=== PATIENT | male | born 1935 | race Caucasian/White ===

== ENCOUNTER 2016-06-25 01:14 | Inpatient (IN) | payer OTHER, MEDICARE ==
[2016-06-25] VITALS (33 sets, daily range): BP systolic 98–183; BP diastolic 59–89; PULSE 73–98; RESP 14–25; TEMP 97.5–98.6; O2SAT 85–100
[~2016-06-25] VITALS: Ht 177.8 cm; Wt 90.8 kg
[2016-06-25] MEDS ORDERED: LISI2.5T3 PO (01:33)
[2016-06-25] MEDS ORDERED: AMLO5TAB2 PO (01:33)
[2016-06-25] MEDS ORDERED: SIMV40TA PO (01:33)
--- NOTE | 2016-06-25 01:50 | RADRPT ---
EXAM DATE/TIME: 06/25/2016 01:44 [place] COMPARISON: No previous studies available for comparison. INDICATIONS : Shortness of breath starting today MEDICAL HISTORY : None. SURGICAL HISTORY : None. ENCOUNTER: Initial ACUITY: 1 day PAIN SCORE: 0/10 LOCATION: Bilateral chest FINDINGS: A single view of the chest demonstrates increased interstitial markings, right greater than left. The heart size is within normal limits. No definite pleural effusions. The bony structures are grossly i ntact. There are no prior studies for comparison.. CONCLUSION: Increased interstitial markings bilaterally, right greater than left. The findings suggest most likel y pulmonary edema versus pneumonia. Clay Bridges MD on June 25, 2016 at 1:48 Board Certified Radiologist. This report was verified electronically.
[2016-06-25 01:57] LABS: BLOOD GAS BASE EXCESS 2.7 mmol/L (-2-2); BLOOD GAS HCO3 28 mmol/L (22-26); BLOOD GAS METHEMOGLOBIN 0.8 % (0-2); BLOOD GAS O2 HGB SATURATION 98 % (90-100); BLOOD GAS OXYGEN CONTENT 18.4 Vol % (12.0-20.0); BLOOD GAS PCO2 53 mmHg (38-42); BLOOD GAS PO2 208 mmHg (61-120); BLOOD GAS TOTAL HGB 13.1 G/DL (12.0-16.0); CRITICAL VALUE YES; OXYGEN DEVICE NPPV; TEMP CORR TO 98.6
[2016-06-25 01:58] LABS: DRAW SITE LT RADIAL; FIO2 100 %; NUMBER OF ARTERIAL PUNCTURES 1; STAT YES; ULNAR PULSE PRESENT; VENT SETTINGS IPAP16/EPAP8
[2016-06-25 01:58] LABS: AUTOMATED NEUTROPHIL # 6.8 TH/MM3 (1.8-7.7); BASOPHIL # 0.1 TH/MM3 (0-0.2); BASOPHIL % 0.6 % (0.0-2.0); EOSINOPHIL # 0.4 TH/MM3 (0-0.4); EOSINOPHIL % 4.1 % (0.0-4.0); HEMATOCRIT 38.7 % (39.0-51.0); HEMO FLAGS DIFF FINAL; LYMPH % 18.9 % (9.0-44.0); LYMPHOCYTE # 1.9 TH/MM3 (1.0-4.8); MEAN CELL VOLUME 91.9 FL (80.0-100.0); MEAN CORPUSCULAR HEMOGLOBIN 31.5 PG (27.0-34.0); MEAN CORPUSCULAR HGB CONC 34.3 % (32.0-36.0); MONO % 7.3 % (0.0-8.0); NEUT % 69.1 % (16.0-70.0); PLATELET COUNT 245 TH/MM3 (150-450); RED BLOOD COUNT 4.22 MIL/MM3 (4.50-5.90); RED CELL DISTRIBUTION WIDTH 12.2 % (11.6-17.2); WHITE BLOOD COUNT 9.9 TH/MM3 (4.0-11.0)
[2016-06-25] MEDS ORDERED: AZITHROMYCIN INJ 500 MG in SODIUM CHLOR 0.9% 250 ML INJ 250 ML IV ONE (02:00)
[2016-06-25] MEDS ORDERED: PIPERACIL-TAZO 4.5 GM PREMIX 100 ML IV ONE (02:00)
[2016-06-25 02:19] LABS: BICARBONATE 27.5 MEQ/L (21.0-32.0); MAGNESIUM 1.9 MG/DL (1.5-2.5); POTASSIUM 3.6 MEQ/L (3.5-5.1)
[2016-06-25 02:22] LABS: APTT (PATIENT) 26.3 SEC (24.3-30.1); PROTHROMBIN TIME - PATIENT 11.3 SEC (9.8-11.6)
[2016-06-25 02:40] LABS: CKMB 7.8 NG/ML (0.5-3.6)
--- NOTE | 2016-06-25 02:41 | PD ---
HPI Chief Complaint: Respiratory Distress Time Seen by Provider: 01:22 Travel History International Travel<30 days: No Contact w/Intl Traveler<30days: No Traveled to known affect area: No History of Present Illness HPI 80-year-old male came to the emergency room brought by EMS emergent for sudden onset shortness of breath. When they did their twelve-lead EKG there was a suspicion for ST elevation. Patient was given sublingual nitroglycerin as well as aspirin. His oxygen saturation was in the 80s and he was put on BiPAP. Patient says that he had heartburn earlier yesterday and then it subsided. Currently he has no chest pain. He started having shortness of breath since the afternoon which is progressively worsening. His called 911. Patient has never had any coronary artery disease history in the past. Given his breathing paramedics had asked if he wants to be intubated and he had refused. However currently talking to him patient has agreed to be intubated if necessary. Also agreed for CPR goes into a cardiac arrest. He is short of breath and unable to give a more detailed history. When the EMS BiPAP was taken out oxygen saturation dropped down to 77 on room air. Patient normally does not require oxygen at home. [facility] Past Medical History Narrative Medical List of his past medical, surgical, social and family history was reviewed from the nursing note. High Cholesterol: Yes Diminished Hearing: No Hypertension: Yes Tetanus Vaccination: Unknown Influenza Vaccination: No Past Surgical History Surgical History: No Previous Surgery Social History Alcohol Use: Yes (DAILY) Tobacco Use: No Substance Use: No Allergies-Medications (Allergen,Severity, Reaction): Coded Allergies: No Known Allergies (Unverified , 06/25/16) Comments No known drug allergies. Reported Meds & Prescriptions Reported Meds & Active Scripts Active Reported Amlodipine (Amlodipine Besylate) 5 Mg Tab 5 Mg PO DAILY Simvastatin 40 Mg Tab 40 Mg PO HS Lisinopril 2.5 Mg Tab 12.5 Mg PO DAILY Narrative Medication List of his home medications reviewed from the nursing note. Review of Systems Except as stated in HPI: all other systems reviewed are Neg Physical Exam Narrative GENERAL: Awake, alert, elderly, moderate to significant respiratory distress SKIN: Focused skin assessment warm/dry. Diaphoretic HEAD: Atraumatic. Normocephalic. EYES: Pupils equal and round. No scleral icterus. No injection or drainage. ENT: No nasal bleeding or discharge. Mucous membranes pink and moist. NECK: Trachea midline. No JVD. CARDIOVASCULAR: Regular rate and rhythm. No murmur appreciated. RESPIRATORY: Respiratory distress, coarse crackles bilaterally, decreased air entry, accessory muscles use for respiration GASTROINTESTINAL: Abdomen soft, non-tender, nondistended. Hepatic and splenic margins not palpable. MUSCULOSKELETAL: No obvious deformities. No clubbing. No cyanosis. No edema. NEUROLOGICAL: Awake and alert. No obvious cranial nerve deficits. Motor grossly within normal limits. Normal speech. PSYCHIATRIC: Appropriate mood and affect; insight and judgment normal. Data Data Last Documented VS Vital Signs Date Time Temp Pulse Resp B/P Pulse Ox O2 Delivery O2 Flow Rate FiO2 06/25/16 02:18 95 18 123/76 96 BiPAP 50 06/25/16 01:10 7.00 Orders Electrocardiogram (06/25/16 01:23) Basic Metabolic Panel (Bmp) (06/25/16 01:23) Ckmb (Isoenzyme) Profile (06/25/16 01:23) Complete Blood Count With Diff (06/25/16:23) Magnesium (Mg) (06/25/16 01:23) Prothrombin Time / Inr (Pt) (06/25/16 01:23) Act Partial Throm Time (Ptt) (06/25/16:23) Troponin I (06/25/16:23) Chest, Single Ap (06/25/16 01:23) Ecg Monitoring (06/25/16 01:23) Bilateral Bp Monitoring (06/25/16 01:23) Iv Access Insert/Monitor (06/25/16:23) Oximetry (06/25/16:23) Oxygen Administration (06/25/16 01:23) Arterial Blood Gas (Abg) (06/25/16 ) Resp Bipap / Cpap Non Invas Vt (06/25/16 ) Blood Culture (06/25/16 01:53) Lactic Acid (06/25/16 01:53) Piperacil-Tazo 4.5 Gm Premix (Zosyn 4.5 (06/25/16 02:00) Azithromycin Inj (Zithromax Inj) (06/25/16 02:00) CKMB (06/25/16 01:27) CKMB% (06/25/16 01:27) Admit Order (Ed Use Only) (06/25/16 02:41) Heparin Infusion LEÓN.Q1H (06/25/16 02:41) Heparin Inj (Heparin Inj) (06/25/16 02:45) Heparin Inj (Heparin Inj) (06/25/16 08:45) Heparin Inj (Heparin Inj) (06/25/16 08:45) Heparin-D5w Inj (Heparin-D5w Inj) (06/25/16 02:45) Act Partial Throm Time (Ptt) (06/25/16 02:41) Cbc No Diff, Includes Plts (06/25/16 02:41) Act Partial Throm Time (Ptt) (06/25/16 09:41) Occult Blood (Hemoccult) Stool (06/25/16 02:41) Labs Laboratory Tests Test 06/25/16 06/25/16 06/25/16 01:27 01:40 02:00 White Blood Count 9.9 TH/MM3 Red Blood Count 4.22 MIL/MM3 Hemoglobin 13.3 GM/DL Hematocrit 38.7 % Mean Corpuscular Volume 91.9 FL Mean Corpuscular Hemoglobin 31.5 PG Mean Corpuscular Hemoglobin 34.3 % Concent Red Cell Distribution Width 12.2 % Platelet Count 245 TH/MM3 Mean Platelet Volume 9.5 FL Neutrophils (%) (Auto) 69.1 % Lymphocytes (%) (Auto) 18.9 % Monocytes (%) (Auto) 7.3 % Eosinophils (%) (Auto) 4.1 % Basophils (%) (Auto) 0.6 % Neutrophils # (Auto) 6.8 TH/MM3 Lymphocytes # (Auto) 1.9 TH/MM3 Monocytes # (Auto) 0.7 TH/MM3 Eosinophils # (Auto) 0.4 TH/MM3 Basophils # (Auto) 0.1 TH/MM3 CBC Comment DIFF FINAL Differential Comment Prothrombin Time 11.3 SEC Prothromb Time International 1.0 RATIO Ratio Activated Partial 26.3 SEC Thromboplast Time Sodium Level 131 MEQ/L Potassium Level 3.6 MEQ/L Chloride Level 92 MEQ/L Carbon Dioxide Level 27.5 MEQ/L Anion Gap 12 MEQ/L Blood Urea Nitrogen 18 MG/DL Creatinine 0.98 MG/DL Estimat Glomerular Filtration 74 ML/MIN Rate Random Glucose 222 MG/DL Calcium Level 8.6 MG/DL Magnesium Level 1.9 MG/DL Total Creatine Kinase 337 U/L Creatine Kinase MB 7.8 NG/ML Creatine Kinase MB % 2.3 % Troponin I 4.66 NG/ML Blood Gas Puncture Site LT RADIAL Blood Gas Patient Temperature 98.6 Blood Gas HCO3 28 mmol/L Blood Gas Base Excess 2.7 mmol/L Blood Gas Oxygen Saturation 98 % Arterial Blood pH 7.34 Arterial Blood Partial 53 mmHg Pressure CO2 Arterial Blood Partial 208 mmHg Pressure O2 Arterial Blood Oxygen Content 18.4 Vol % Arterial Blood 1.0 % Carboxyhemoglobin Arterial Blood Methemoglobin 0.8 % Blood Gas Hemoglobin 13.1 G/DL Oxygen Delivery Device NPPV Blood Gas Ventilator Setting IPAP16/EPAP8 Blood Gas Inspired Oxygen 100 % Lactic Acid Level 1.0 mmol/L MDM Medical Decision Making Medical Screen Exam Complete: Yes Emergency Medical Condition: Yes Medical Record Reviewed: Yes Interpretation(s) Twelve-lead EKG was reviewed by me. Normal sinus rhythm, left axis deviation, poor R-wave progression, anterior ST elevation of indeterminate age. Heart rate of 95 bpm. Differential Diagnosis Non-STEMI, congestive heart failure, pulmonary edema, pneumonia Narrative Course 2:38 AM the 12-lead EKG was sent to Dr. Hernandez who is business relationship manager for cardiology. He agreed that patient does not qualify for a STEMI alert. Patient was put on BiPAP here and ABG shows slight respiratory acidosis. Chest x-ray suggestive of pulmonary edema versus pneumonia but right worse than left. Based on that and respiratory distress I started him on IV antibiotic as well. Patient is doing well currently hemodynamically as well as oxygen saturation why he is on the BiPAP. Blood test result is suggestive of elevated troponin. I will start him on heparin bolus and drip. Patient will need to be admitted to the ICU and I spoke with the furrier designer Dr. Colby was accepted the case. Patient's family members are here and I'll go and speak with them as well. Critical Care Narrative Aggregate critical care time was 45 minutes. Time to perform other separately billable procedures was not included in the critical care time. My time did not include minutes spent treating any other patients simultaneously or on activities that did not directly contribute to the patient's treatment. The services I provided to this patient were to treat and/or prevent clinically significant deterioration that could result in: Respiratory distress, BiPAP management, non-STEMI, heparin bolus and drip. I provided critical care services requiring my management, as noted below: Chart data review, documentation time, medication orders and management, vital sign assessments/reviewing monitor data, ordering and reviewing lab tests, ordering and interpreting/reviewing x-rays and diagnostic studies, care of the patient and discussion of the patient with the admitting physicians. Procedures EKG Prior to Arrival: Yes Physician Communication Physician Communication Dr. Hernandez, Dr. Colby Diagnosis Primary Impression: Pulmonary edema Qualified Code: J81.0 - Acute pulmonary edema Additional Impressions: Respiratory distress Non-STEMI (non-ST elevated myocardial infarction) Admitting Information Admitting Physician Requests: Admit Maurice Dhillon MD Jun 25, 2016 02:41
[2016-06-25] MEDS ORDERED: HEPARIN SODIUM - IV 10,000 UNITS/10 ML VIAL IV ONE ×2 (02:45→14:00)
[2016-06-25] MEDS: HEPARIN-D5W INJ 250 ML IV SCH ×3 (03:06→04:26)
[2016-06-25 03:26] LABS: HEMATOCRIT 36.7 % (39.0-51.0); MEAN CELL VOLUME 91.3 FL (80.0-100.0); MEAN CORPUSCULAR HEMOGLOBIN 31.4 PG (27.0-34.0); MEAN CORPUSCULAR HGB CONC 34.4 % (32.0-36.0); PLATELET COUNT 226 TH/MM3 (150-450); RED BLOOD COUNT 4.02 MIL/MM3 (4.50-5.90); RED CELL DISTRIBUTION WIDTH 11.8 % (11.6-17.2); REVIEW FLAG FINAL; WHITE BLOOD COUNT 10.8 TH/MM3 (4.0-11.0)
[2016-06-25 03:43] LABS: APTT (PATIENT) 26.7 SEC (24.3-30.1)
[2016-06-25] MEDS ORDERED: CHLORHEXIDINE GLUCONATE 2 % 1 PACK (2 CLOTHS)(extra cloths) TOPICAL PRN (03:45)
[2016-06-25] MEDS: CHLORHEXIDINE GLUCONATE 2 % 1 PACK (2 CLOTHS)(taper/protocol) TOPICAL SCH ×2 (04:00→04:14)
[2016-06-25] MEDS ORDERED: ACETAMINOPHEN 325 MG TAB PO PRN (04:15)
[2016-06-25] MEDS ORDERED: CHLORHEXIDINE GLUCONATE 2 % 1 PACK (2 CLOTHS) TOP PRN (04:15)
[2016-06-25] MEDS ORDERED: FUROSEMIDE 40 MG/4 ML VIAL IV PUSH ONE (04:15)
[2016-06-25] MEDS ORDERED: MISCELLANEOUS NURSING INFORMATION XX SCH (04:15)
[2016-06-25] MEDS ORDERED: SENNOSIDES 8.6 MG TAB PO PRN (04:15)
[2016-06-25] MEDS ORDERED: ONDANSETRON HCL 4 MG/2 ML VIAL IV PRN (04:15)
[2016-06-25] MEDS ORDERED: RESP: ALBUTEROL 2.5 MG/IPRATROPIUM 0.5 MG NEB (PRN) INH (04:15)
--- NOTE | 2016-06-25 04:29 | HHI.HP ---
HPI Service Critical Care Medicine Primary Care Physician No Primary Care Physician Admission Diagnosis respiratory distress, pulmonary edema, non-STEMI Diagnosis: Chief Complaint: Heart Burn Travel History International Travel<30 Days: No Contact w/Intl Traveler <30 Da: No Traveled to Known Affected Are: No History of Present Illness 80 y/o man with 7 day history of bad heartburn. He tried gargling with listerine , drinking vinegar, pepto-bismol, burping with no relief. On arrival to ED trop elevated to 4, discussed with Dr. Moss who wanted to admit for ongoing evaluation. The patient has diffuse interstitial edema on CXR which is undoubtedly failure water. Review of Systems ROS Heart burn for 7 days. Past Family Social History Allergies: Coded Allergies: No Known Allergies (Unverified , 06/25/16) Physical Exam Vital Signs Vital Signs Date Time Temp Pulse Resp B/P Pulse Ox O2 Delivery O2 Flow Rate FiO2 06/25/16 03:29 97.5 91 24 149/86 97 06/25/16 03:14 82 18 126/72 98 BiPAP 40 06/25/16 03:10 100 15.00 100 06/25/16 02:18 95 18 123/76 96 BiPAP 50 06/25/16 01:36 85 18 140/77 99 BiPAP 40 142/80 06/25/16 01:25 97 BiPAP 40 06/25/16 01:25 20 97 BiPAP 40 06/25/16 01:22 20 95 BiPAP 40 06/25/16 01:17 94 20 135/82 93 06/25/16 01:10 100 100 06/25/16 01:10 85 7.00 100 Physical Exam P 110, BP 146/76, R 18 labored Head: Normal. Neck: Supple, airway patent Lungs: Diffuse light crackles, no wheezes. Labored. Heart: NL S1S2, no m,r. + JVD. Abdomen: Benign, no guarding Extremities: Tepid but well perfused. No edema. Neuro: O X 3, conversant. Moves 4 limbs to command. Laboratory Laboratory Tests Test 06/25/16 06/25/16 06/25/16 06/25/16 01:27 01:40 02:00 03:05 White Blood Count 9.9 10.8 Red Blood Count 4.22 4.02 Hemoglobin 13.3 12.6 Hematocrit 38.7 36.7 Mean Corpuscular Volume 91.9 91.3 Mean Corpuscular Hemoglobin 31.5 31.4 Mean Corpuscular Hemoglobin 34.3 34.4 Concent Red Cell Distribution Width 12.2 11.8 Platelet Count 245 226 Mean Platelet Volume 9.5 9.4 Neutrophils (%) (Auto) 69.1 Lymphocytes (%) (Auto) 18.9 Monocytes (%) (Auto) 7.3 Eosinophils (%) (Auto) 4.1 Basophils (%) (Auto) 0.6 Neutrophils # (Auto) 6.8 Lymphocytes # (Auto) 1.9 Monocytes # (Auto) 0.7 Eosinophils # (Auto) 0.4 Basophils # (Auto) 0.1 CBC Comment DIFF FINAL Differential Comment Prothrombin Time 11.3 Prothromb Time International 1.0 Ratio Activated Partial 26.3 26.7 Thromboplast Time Sodium Level 131 Potassium Level 3.6 Chloride Level 92 Carbon Dioxide Level 27.5 Anion Gap 12 Blood Urea Nitrogen 18 Creatinine 0.98 Estimat Glomerular Filtration 74 Rate Random Glucose 222 Calcium Level 8.6 Magnesium Level 1.9 Total Creatine Kinase 337 Creatine Kinase MB 7.8 Creatine Kinase MB % 2.3 Troponin I 4.66 Blood Gas Puncture Site LT RADIAL Blood Gas Patient Temperature 98.6 Blood Gas HCO3 28 Blood Gas Base Excess 2.7 Blood Gas Oxygen Saturation 98 Arterial Blood pH 7.34 Arterial Blood Partial 53 Pressure CO2 Arterial Blood Partial 208 Pressure O2 Arterial Blood Oxygen Content 18.4 Arterial Blood 1.0 Carboxyhemoglobin Arterial Blood Methemoglobin 0.8 Blood Gas Hemoglobin 13.1 Oxygen Delivery Device NPPV Blood Gas Ventilator Setting IPAP16/EPAP8 Blood Gas Inspired Oxygen 100 Lactic Acid Level 1.0 Date/Time Procedure Status Source Growth 06/25/16 02:00 Aerobic Blood Culture Received Blood Peripheral Pending 06/25/16 02:00 Anaerobic Blood Culture Received Blood Peripheral Pending Result Diagram: 06/25/16 0305 06/25/16 0127 Assessment and Plan Assessment and Plan Assessment: 1. Hypoxemic Respiratory Failure. 2. NSTEMI, recent past 3. Hypertension. 4. Pulmonary venous congestion. Plan: 1. BiPAP NIV. 2. Lasix. 3. Start lopressor 12.5 bid. 4. Restart home lisinopril 2.5 daily, norvasc 5 daily, statin. 5. Heparin gtt. 6. Serial enzymes. 7. BNP. Overall impression: Critically ill with hypoxemic respiratory failure and likely recent RI resulting in heart failure. Aggressive diuresis now. Critical care 42 mins Gui Colby MD Jun 25, 2016 04:29
[2016-06-25 06:00] LABS: APTT (PATIENT) 62.2 SEC (24.3-30.1)
[2016-06-25] MEDS ORDERED: HEPARIN SODIUM - IV 10,000 UNITS/10 ML VIAL IV PRN ×3 (08:45→18:45)
[2016-06-25] MEDS ORDERED: amLODIPine BESYLATE 5 MG TAB PO SCH (09:00)
[2016-06-25] MEDS ORDERED: LISINOPRIL 5 MG TAB PO SCH (09:00)
[2016-06-25 09:55] LABS: APTT (PATIENT) 38.7 SEC (24.3-30.1)
[2016-06-25] MEDS ORDERED: diphenhydrAMINE HCL 50 MG CAP PO SCH (10:15)
[2016-06-25] MEDS ORDERED: ASPIRIN 325 MG TAB PO SCH (10:15)
[2016-06-25] MEDS ORDERED: DIAZEPAM 10 MG TAB PO SCH (10:15)
[2016-06-25] MEDS: PANTOPRAZOLE SOD 40 MG DELAYED RELEASE TAB PO SCH (10:25)
[2016-06-25] MEDS: DOCUSATE SODIUM 100 MG CAP PO SCH ×2 (10:25→20:14)
[2016-06-25] MEDS: METOPROLOL TARTRATE 25 MG TAB PO SCH ×3 (10:25→20:14)
[2016-06-25] MEDS: SODIUM CHLOR 0.9% 1000 ML INJ 1,000 ML IV SCH ×2 (10:26→20:05)
[2016-06-25] MEDS ORDERED: HEPARIN-NS/PF INJ 500 ML ONE (11:59)
--- NOTE | 2016-06-25 12:12 | EC ---
Study Study Date:06/25/2016 STUDY CONCLUSIONS SUMMARY - Procedure narrative: Transthoracic echocardiography. Image quality was poor. Scanning was performed from the parasternal, apical, and subcostal acoustic windows. - Left ventricle: The cavity size was at the upper limits of normal. Wall thickness was normal. Systolic function was difficult to assess. Ejection fraction is roughly 40%. There appears to be moderate septal and possibly severe basal inferior hypokinesis. The anterior wall is poorly visualized. - Aortic valve: Moderate leaflet sclerosis and mild calcification. Mean gradient: 10mm Hg consistent with mild stenosis. - Mitral valve: Moderately calcified annulus. Trace regurgitation. If LV function is below 40, please consider prescribing an ACEI or ARB or document rationale for non-use. PROCEDURE DATA STUDY STATUS: Elective. Procedure: Transthoracic echocardiography. Image quality was poor. Scanning was performed from the parasternal, apical, and subcostal acoustic windows. Study completion: The patient tolerated the procedure well. Transthoracic echocardiography. M-mode, complete 2D, complete spectral Doppler, and color Doppler. Height: Height: 70in. Weight: Weight: 200.6lb. Body mass index: BMI: 28.8kg/m^2. Body surface area: BSA: 2.09m^2. Patient status: Inpatient. CARDIAC ANATOMY LEFT VENTRICLE: The cavity size was at the upper limits of normal. Wall thickness was normal. Systolic function was difficult to assess. Ejection fraction is roughly 40%. There appears to be moderate septal and possibly severe basal inferior hypokinesis. The anterior wall is poorly visualized. AORTIC VALVE: Moderate leaflet sclerosis and mild calcification. Doppler: Transvalvular velocity was within the normal range. There was no stenosis. No regurgitation. Valve area: 1.27cm^2(VTI). Indexed valve area: 0.61cm^2/m^2 (VTI). Valve area: 1.31cm^2 (Vmax). Indexed valve area: 0.63cm^2/m^2 (Vmax). Mean gradient: 10mm Hg consistent with mild stenosis. Peak gradient: 20mm Hg (S). AORTA: Aortic root: The aortic root was normal in size. MITRAL VALVE: Moderately calcified annulus. Doppler: Transvalvular velocity was within the normal range. There was no evidence for stenosis. Trace regurgitation. Valve area by pressure half-time: 4.68cm^2. Indexed valve area by pressure half-time: 2.24cm^2/m^2. Valve area by continuity equation (using LVOT flow): 1.46cm^2. Indexed valve area by continuity equation (using LVOT flow): 0.7cm^2/m^2. Mean gradient: 3mm Hg (D). Peak gradient: 8mm Hg (D). LEFT ATRIUM: The atrium was normal in size. RIGHT VENTRICLE: The cavity size was normal. Wall thickness was normal. PULMONIC VALVE: Doppler: Transvalvular velocity was within the normal range. There was no evidence for stenosis. No regurgitation. TRICUSPID VALVE: Structurally normal valve. Doppler: Transvalvular velocity was within the normal range. No regurgitation. Peak gradient: 16mm Hg (D). PULMONARY ARTERY: The main pulmonary artery was normal-sized. Systolic pressure was within the normal range. RIGHT ATRIUM: The atrium was normal in size. PERICARDIUM: There was no pericardial effusion. SYSTEMIC VEINS: Inferior vena cava: The vessel was normal in size. Patient weight: 200.6lb _Ejection fraction:_ 65-75% _Fractional shortening:_ 32% up to 5Kg 5-11.5Kg 11.6-22.9Kg 23-45Kg 45-57Kg Aortic Root 7-13 <17 13-22 17-27 17-27 LA diam 6-13 <23 24-38 33-47 37-40 RVID 10-17 7-15 7-15 7-18 8-17 LVIDd 12-22 <32 24-38 33-47 37-40 LVPW 2-4 3-6 5-7 6-8 7-8 IVS 2-4 3-6 5-7 6-8 7-8 BASIC MEASUREMENTS ADULT NORMAL Left ventricle LV internal dimension, ED, chordal 50 mm 43-52 level, PLAX LV internal dimension, ES, chordal *41.4 mm 23-38 level, PLAX Fractional shortening, chordal level, *17 % >29 PLAX LV posterior wall thickness, ED 10.7 mm IVS/LVPW ratio, ED 1 <1.3 Ventricular septum Septal thickness, ED 10.7 mm Aortic valve Leaflet separation *12 mm 15-26 Left atrium Anterior-posterior dimension 39 mm Anterior-posterior dimension index 1.87 cm/m^2 <2.2 Right ventricle RV internal dimension, ED, PLAX 24.6 mm 19-38 BASIC MEASUREMENTS ADULT NORMAL Left ventricle LV internal dimension, ED 54.4 mm 37-56 LV internal dimension, ES 45.1 mm Fractional shortening *17 % 29-45 LV posterior wall, ED 10 mm 6-11 Septal/posterior wall ratio, ED 1 Relative wall thickness, ED 0.37 <0.45 Volume, ED, Teichholz 144 ml Volume, ES, Teichholz 92.9 ml Ejection fraction, Teichholz *35.5 % 64-83 Stroke volume, Teichholz 51.1 ml Volume index, ED, Teichholz 69 ml/m^2 Volume index, ES, Teichholz 44 ml/m^2 Stroke index, Teichholz 24.4 ml/m^2 Wall mass 209.3 g Wall mass index 100.1 g/m^2 Mass/height 1.18 g/cm Ventricular septum Septal thickness, ED 10 mm Aortic valve Leaflet separation *12 mm 15-26 Aorta Root diameter, ED 29 mm 20-37 DOPPLER MEASUREMENTS ADULT NORMAL Aortic valve Peak velocity, S 226 cm/s Mean velocity, S 149 cm/s VTI, S 33.9 cm Mean gradient, S 10 mm Hg Peak gradient, S 20 mm Hg Valve area, VTI 1.27 cm^2 Valve area index, VTI 0.61 cm^2/m^2 Valve area, Vmax 1.31 cm^2 Valve area index, Vmax 0.63 cm^2/m^2 Regurgitant velocity, ED 322 cm/s Regurgitant deceleration 1850 cm/s^2 Regurgitant pressure half-time 509 ms Regurgitant gradient, ED 41 mm Hg Mitral valve Peak E-wave velocity 122 cm/s Peak A-wave velocity 81.9 cm/s Mean velocity, D 76.7 cm/s Pressure half-time 47 ms Mean gradient, D 3 mm Hg Peak gradient, D 8 mm Hg Peak E/A ratio 1.5 Valve area, pressure half-time 4.68 cm^2 Valve area index, pressure half-time 2.24 cm^2/m^2 Valve area, LVOT continuity 1.46 cm^2 Valve area index, LVOT continuity 0.7 cm^2/m^2 Tricuspid valve Peak gradient, D 16 mm Hg Maximal inflow velocity 201 cm/s Pulmonic valve Peak velocity, S 119 cm/s LEGEND: Mean values are shown as u=mean value. Asterisk (*) tinoco values outside specified normal range. Prepared and signed by Ludwin Wolff [id number]
[2016-06-25] MEDS ORDERED: SODIUM CHLOR 0.9% 1000 ML INJ 1,000 ML IV SCH (12:40)
[2016-06-25] MEDS ORDERED: SODIUM CHLOR 0.9% 250 ML INJ 250 ML IV PRN (12:45)
[2016-06-25] MEDS ORDERED: ATROPINE SULFATE 1 MG/ML VIAL IV PRN (12:45)
[2016-06-25] MEDS ORDERED: MISC INFORMATION XX ONE (12:45)
--- NOTE | 2016-06-25 13:03 | MB ---
cc: SHAI QUIGLEY DATE OF CONSULTATION 06/25/2016 REASON FOR CONSULTATION Abnormal cardiac enzymes, chest pain. HISTORY OF PRESENT ILLNESS The patient is an 80-year-old white male from [place], with a history of hypertension, hyperlipidemia who presented to the hospital with a several-day history of increasing dyspnea as well as intermittent "heartburn." For the past for the past 6-7 days, he has been having occasional heartburn symptoms which have lasted up to a few hours, waxing and waning throughout the day. He has taken antacids, Pepto-Bismol without relief of his symptoms. Cardiac enzymes were checked here in the hospital and found to be abnormal. Since coming into hospital, he has had no further heartburn. His dyspnea has improved. He denies pedal edema, paroxysmal nocturnal dyspnea, orthopnea, syncope, near-syncope, palpitations, lightheadedness. PAST MEDICAL HISTORY 1. Hypertension 2. Hyperlipidemia MEDICATIONS His cardiac medications at home: 1. Amlodipine 5 mg daily 2. Simvastatin 40 mg q.h.s. 3. Lisinopril 12.5 mg daily ALLERGIES NO KNOWN DRUG ALLERGIES. FAMILY HISTORY Noncontributory SOCIAL HISTORY The patient denies alcohol or tobacco abuse. REVIEW OF SYSTEMS As in the history of present illness, otherwise negative or noncontributory. He also denies headache, visual changes, abdominal pain, melena, dyspepsia, bright red blood per rectum. PHYSICAL EXAM On physical examination his blood pressure 98/62 with pulse of 74, respirations 22. GENERAL: He is a well-developed, well-nourished white male in no acute distress. HEENT: Jugular venous pressure is 9 cm of water. Carotid pulses are 2+ bilaterally and without bruits. CHEST: Examination of the chest reveals diminished breath sounds at the bases. CARDIAC: On cardiac examination, he has a regular rhythm and rate with a grade 1/6 systolic murmur heard at the left upper sternal border. No definite gallop is audible. ABDOMEN: On abdominal examination, he has a soft, nontender abdomen. Bowel sounds are present. There is no definite hepatosplenomegaly. EXTREMITIES: Examination of extremities reveals no clubbing, cyanosis or edema. Peripheral pulses are normal throughout. LABORATORY DATA Includes WBC 10.8, hemoglobin 12.6, platelets 226. Potassium 3.6, BUN 18, creatinine 0.98, troponin 4.66, CK 337, INR 1.0. Chest x-ray shows increased interstitial markings. EKG from 06/25/2016 at 01:17 a.m. shows sinus rhythm, overall nonspecific inferior and anteroseptal ST abnormalities, poor R-wave progression. IMPRESSION Acute [id number] myocardial infarction, acute congestive heart failure in this 80-year-old white male with a history of hypertension, hyperlipidemia. At this time, he is chest discomfort free. I suspect his "heartburn" symptoms over the past several days has been his angina equivalent. His initial EKG shows overall nonspecific ST abnormalities. In light of the instability of his symptoms, abnormal cardiac enzymes, acute congestive heart failure, I have recommended he undergo cardiac catheterization with possible percutaneous coronary intervention the risks of which have explained him including but not limited to , myocardial infarction, stroke, arrhythmia, bleeding, infection, renal failure. He agrees to proceed. RECOMMENDATIONS 1. Continue beta vivian and MICK inhibitor therapy. 2. Daily aspirin. 3. Continue heparin drip. 4. Await his 2-D echo. 5. Mild diuresis. 6. Cardiac catheterization today. 7. Check a fasting lipid profile. MD MILKA Rodriges/LEANNE /10:03 AM /12:49 PM MTDGregory
--- NOTE | 2016-06-25 15:39 | MA ---
cc: JESSI QUIGLEY M.D. DATE: 06/25/2016 Cc: PROCEDURE Left heart catheterization, selective coronary angiography, left ventriculography. PROCEDURE NOTE The patient was brought to the cardiac catheterization laboratory in a fasting state after having signed informed consent. The right groin was prepped and draped as per policy and anesthetized with 1% lidocaine. Arterial access was obtained via the right femoral artery and a 6-American sheath placed. Coronary arteriography was performed using 6-American Stacy left 4.0 and right progressive catheters. Left ventriculography was done using a standard 6-American pigtail. There were no apparent immediate complications. His arteriotomy site was closed with Vascade. HEMODYNAMIC RESULTS Left ventricle 130 with an end-diastolic pressure of 18. Aorta 130/65 with a mean of 85. There was no significant trans valvular aortic gradient on pullback of the pigtail catheter. CORONARY ARTERIOGRAPHY: The left main overall has mild mid disease resulting in up to 10% stenosis. The left anterior descending is diffusely diseased. There is up to 90% stenosis proximally and 75% stenosis distally. The mid left anterior descending has diffuse up to 20% stenosis. There is a medium-sized branching diagonal, which has up to 50% stenosis just prior to its bifurcation. The left circumflex is a fairly large vessel giving rise to a large obtuse marginal. There is diffuse proximal to mid left circumflex disease. There is up to 30% mid stenosis. There are two smaller obtuse marginal arising from the proximal left circumflex, the second of which has severe ostial disease. The very large third obtuse marginal has somewhat eccentric 60% stenosis in its midportion. The right coronary artery is totally occluded proximally. There are scant collaterals to the right coronary from the left circumflex. LEFT VENTRICULOGRAPHY Contrast injection of the left ventricle reveals mild inferior hypokinesis as well as akinesis of the anteroapical wall. There is also mild to moderate mitral regurgitation. Ejection fraction is estimated at 40%. CONCLUSIONS 1. Severe three-vessel coronary artery disease. 2. Reduced left ventricular systolic function with ejection fraction roughly estimated at 40%. 3. Mild to moderate mitral regurgitation. DISCUSSION The patient will be referred for bypass surgery. Bypass grafts could be considered to the left anterior descending, second and third obtuse marginals, possibly the right coronary. MD Gelacio Rodriges /12:37 PM /3:26 PM [facility]
[2016-06-25] MEDS ORDERED: IOHEXOL 350 MG/ML 100 ML BTL (for Cath Lab) OTHER ONE (16:28)
[2016-06-25] MEDS ORDERED: ARTIFICIAL TEARS OPTH SOLN 15 ML BTL EACH EYE PRN (17:15)
[2016-06-25 17:21] LABS: APTT (PATIENT) 122.1 SEC (24.3-30.1)
--- NOTE | 2016-06-25 17:45 | EKG ---
Date Performed: 06/25/2016 Time Performed: 01:17:51 PTAGE: 80 years EKG: Sinus rhythm Nonspecific ST-T changes INTERPRETATION BASED ON A DEFAULT AGE OF 40 YEARS NO PREVIOUS TRACING DOCTOR: Dorian Collazo Interpretating Date/Time 06/25/2016 17:43:35
[2016-06-25] MEDS ORDERED: LABETALOL HCL 100 MG/20 ML VIAL IV PUSH PRN (18:15)
[2016-06-25] MEDS: FUROSEMIDE 40 MG/4 ML VIAL IV PUSH SCH ×2 (18:42→20:15)
[2016-06-25] MEDS: PRAVASTATIN SOD 40 MG TAB PO SCH (20:13)
[2016-06-25 20:46] LABS: APTT (PATIENT) 33.5 SEC (24.3-30.1)
[2016-06-26] VITALS (14 sets, daily range): BP systolic 97–132; BP diastolic 53–81; PULSE 77–94; RESP 18–38; TEMP 97.5–98.6; O2SAT 91–97
[2016-06-26] MEDS: HEPARIN-D5W INJ 250 ML IV SCH ×2 (00:38→19:13)
[2016-06-26 02:26] LABS: AUTOMATED NEUTROPHIL # 7.3 TH/MM3 (1.8-7.7); BASOPHIL % 0.2 % (0.0-2.0); EOSINOPHIL # 0.1 TH/MM3 (0-0.4); HEMATOCRIT 36.1 % (39.0-51.0); HEMO FLAGS DIFF FINAL; LYMPH % 13.2 % (9.0-44.0); LYMPHOCYTE # 1.3 TH/MM3 (1.0-4.8); MEAN CELL VOLUME 91.2 FL (80.0-100.0); MEAN CORPUSCULAR HEMOGLOBIN 30.7 PG (27.0-34.0); MEAN CORPUSCULAR HGB CONC 33.6 % (32.0-36.0); MONO % 9.4 % (0.0-8.0); NEUT % 76.2 % (16.0-70.0); PLATELET COUNT 246 TH/MM3 (150-450); RED BLOOD COUNT 3.96 MIL/MM3 (4.50-5.90); RED CELL DISTRIBUTION WIDTH 12.4 % (11.6-17.2); WHITE BLOOD COUNT 9.6 TH/MM3 (4.0-11.0)
[2016-06-26 02:33] LABS: APTT (PATIENT) 35.7 SEC (24.3-30.1)
[2016-06-26] MEDS ORDERED: CHLORHEXIDINE GLUCONATE 2 % 1 PACK (2 CLOTHS) TOP SCH (04:00)
[2016-06-26 04:58] LABS: ALKALINE PHOSPHATASE 52 U/L (45-117); ALT (GPT) 41 U/L (12-78); ANION GAP 9 MEQ/L (5-15); AST (GOT) 33 U/L (15-37); BICARBONATE 32.6 MEQ/L (21.0-32.0); BLOOD UREA NITROGEN 14 MG/DL (7-18); CHLORIDE 92 MEQ/L (98-107); GLOMERULAR FILTRATION RATE 78 ML/MIN (>89); HDL CHOLESTEROL 49.5 MG/DL (40.0-60.0); LDL CHOLESTEROL 75 MG/DL (0-99); POTASSIUM 3.4 MEQ/L (3.5-5.1); SODIUM (NA) 134 MEQ/L (136-145); TOTAL BILIRUBIN ADULT 0.5 MG/DL (0.2-1.0)
--- NOTE | 2016-06-26 06:02 | RADRPT ---
EXAM DATE/TIME: 06/26/2016 04:38 [facility] COMPARISON: CHEST SINGLE AP, June 25, 2016, 1:44. INDICATIONS : Follow up pulmonary edema. MEDICAL HISTORY : None. SURGICAL HISTORY : None. ENCOUNTER: Subsequent ACUITY: 2 days PAIN SCORE: Non-responsive. LOCATION: chest FINDINGS: Consolidation in the right mid and lower lung becoming more confluent and would be more typical of pn eumonia rather than edema. The mild edema previously seen in the left lung is resolving. I don't see a large effusion on either side. No pneumothorax. Heart size stable, upper limits of normal. CONCLUSION: Decreasing edema but worsening right-sided pneumonia. Danny Lamar MD on June 26, 2016 at 5:59 Board Certified Radiologist. This report was verified electronically.
[2016-06-26] MEDS: SODIUM CHLOR 0.9% 1000 ML INJ 1,000 ML IV SCH (06:05)
--- NOTE | 2016-06-26 09:20 | PD.CARD.PN ---
Subjective Subjective Remarks Denies dyspnea. Fleeting "heartburn" this morning o/w no CP. No PND, dizziness , palpitations, nausea. Objective Medications Item Value Date Time Pravastatin Sodium 80 mg 06/25/16 2100 (Pravachol) HS/PO 06/25/162012 Metoprolol 25 mg 06/25/16 1830 Tartrate TID/PO 06/25/16 1843 (Lopressor) Furosemide 40 mg 06/25/16 1830 (Lasix Inj) Q12HR/IV PUSH 06/25/162014 Labetalol HCl 10 mg 06/25/16 1815 (Trandate Inj) Q4H PRN/IV PUSH Heparin Sodium/ 250 ml @ 0 mls/hr 06/25/16 1400 Dextrose TITRATE/IV 06/26/16 0038 Amlodipine 5 mg 06/25/16 0900 Besylate DAILY/PO 06/25/16 1025 (Norvasc) Lisinopril 12.5 mg 06/25/16 0900 (Prinivil) DAILY/PO 06/25/16 1025 Vital Signs / I&O Vital Signs Date Time Temp Pulse Resp B/P Pulse Ox O2 Delivery O2 Flow Rate FiO2 06/26/16 06:00 82 06/26/16 04:00 98.2 77 25 97/53 94 06/26/16 04:00 77 06/26/16 02:00 83 06/26/16 00:00 80 06/26/16 00:00 98.4 80 38 110/63 91 06/25/16 22:00 79 06/25/16 20:00 98.4 97 25 140/80 92 06/25/16 20:00 97 06/25/16 19:05 93 Nasal Cannula 6.00 06/25/16 19:00 91 Nasal Cannula 6.00 06/25/16 18:00 97 06/25/16 17:30 85 14 183/77 92 06/25/16 16:30 98.6 91 14 160/89 94 06/25/16 16:00 90 06/25/16 15:30 91 145/83 06/25/16 15:00 80 134/78 06/25/16 14:30 83 146/80 06/25/16 14:00 88 113/59 06/25/16 14:00 88 06/25/16 13:45 98 132/80 06/25/16 13:30 91 145/83 06/25/16 13:15 91 144/82 06/25/16 13:00 87 136/82 06/25/16 12:00 87 06/25/16 12:00 98.3 87 22 136/82 99 06/25/16 10:00 94 I/O 06/25/16 06/25/16 06/25/16 06/26/16 06/26/16 06/26/16 07:00 15:00 23:00 07:00 15:00 23:00 Intake Total 293 ml 270 ml 763 ml 717 ml Output Total 900 ml 1600 ml 2450 ml 300 ml Balance -607 ml -1330 ml -1687 ml 417 ml Intake Oral 0 ml 240 ml IV Total 293 ml 270 ml 523 ml 717 ml Output Urine Total 900 ml 1600 ml 2450 ml 300 ml # Voids 3 Physical Exam GENERAL: Well developed, well nourished. No acute distress. HEENT: Jugular venous pressure is normal. CHEST: Diminished breath sounds bases. Minimal right basilar crackle. CARDIAC: Regular rate and rhythm without S3, S4, or murmur. ABDOMEN: Soft, nontender, no hepatosplenomegaly. Bowel sounds present. EXTREMITIES: No clubbing, cyanosis, or edema. Laboratory Laboratory Tests Test 06/25/16 06/25/16 06/25/16 06/26/16 09:21 14:27 19:25 01:51 Activated Partial 38.7 SEC 122.1 SEC 33.5 SEC 35.7 SEC Thromboplast Time White Blood Count 9.6 TH/MM3 Red Blood Count 3.96 MIL/MM3 Hemoglobin 12.1 GM/DL Hematocrit 36.1 % Mean Corpuscular Volume 91.2 FL Mean Corpuscular Hemoglobin 30.7 PG Mean Corpuscular Hemoglobin 33.6 % Concent Red Cell Distribution Width 12.4 % Platelet Count 246 TH/MM3 Mean Platelet Volume 9.3 FL Neutrophils (%) (Auto) 76.2 % Lymphocytes (%) (Auto) 13.2 % Monocytes (%) (Auto) 9.4 % Eosinophils (%) (Auto) 1.0 % Basophils (%) (Auto) 0.2 % Neutrophils # (Auto) 7.3 TH/MM3 Lymphocytes # (Auto) 1.3 TH/MM3 Monocytes # (Auto) 0.9 TH/MM3 Eosinophils # (Auto) 0.1 TH/MM3 Basophils # (Auto) 0.0 TH/MM3 CBC Comment DIFF FINAL Differential Comment Test 06/26/16 03:30 Sodium Level 134 MEQ/L Potassium Level 3.4 MEQ/L Chloride Level 92 MEQ/L Carbon Dioxide Level 32.6 MEQ/L Anion Gap 9 MEQ/L Blood Urea Nitrogen 14 MG/DL Creatinine 0.93 MG/DL Estimat Glomerular Filtration 78 ML/MIN Rate Random Glucose 124 MG/DL Calcium Level 8.4 MG/DL Total Bilirubin 0.5 MG/DL Aspartate Amino Transf 33 U/L (AST/SGOT) Alanine Aminotransferase 41 U/L (ALT/SGPT) Alkaline Phosphatase 52 U/L Total Protein 6.7 GM/DL Albumin 3.1 GM/DL Triglycerides Level 173 MG/DL Cholesterol Level 159 MG/DL LDL Cholesterol 75 MG/DL HDL Cholesterol 49.5 MG/DL Cholesterol/HDL Ratio 3.21 RATIO Imaging Last 48 hours Impressions Chest X-Ray 06/26/16 0600 Signed Impressions: Service Date/Time: Sunday, June 26, 2016 04:38 - CONCLUSION: Decreasing edema but worsening right-sided pneumonia. Danny Lamar MD Chest X-Ray 06/25/16 0123 Signed Impressions: Service Date/Time: May 01:44 - CONCLUSION: Increased interstitial markings bilaterally, right greater than left. The findings suggest most likely pulmonary edema versus pneumonia. Clay Bridges MD Assessment and Plan Problem List: (1) CAD (coronary artery disease) Assessment and Plan: Status post NSTEMI. Severe 3 vessel CAD by cath yesterday. Stable overnight. Very brief recurrent angina this morning o/w asymptomatic. Await surgical consultation for possible CABG. Dr. Fox to see PRN over the weekend. Continue heparin drip, aspirin, beta vivina, MICK-I. (2) Congestive heart failure (CHF) Assessment and Plan: EF ~ 40% by echo and cath. Symptomatically much improved after good diuresis. Chest x-ray with improving pulmonary edema. Rec continue beta vivian, MICK-I, consider decreasing IV Lasix dosing. (3) Hypertension Assessment and Plan: Normotensive this morning. Cont same. (4) Hyperlipidemia Assessment and Plan: Fairly good lipid profile with LDL 75. Continue statin. Code Status full code Discussed Condition With patient Problem Qualifiers (1) CAD (coronary artery disease): Qualified Code: I25.110 - Coronary artery disease involving [place] coronary artery of [place] heart with unstable angina pectoris (2) Congestive heart failure (CHF): Qualified Code: I50.21 - Acute systolic congestive heart failure (3) Hypertension: Qualified Code: I10 - Essential hypertension (4) Hyperlipidemia: Qualified Code: E78.2 - Mixed hyperlipidemia Ludwin Wolff MD Jun 26, 2016 09:20
[2016-06-26] MEDS ORDERED: ASPIRIN EC 325 MG TABEC PO SCH (09:30)
[2016-06-26 09:48] LABS: APTT (PATIENT) 40.8 SEC (24.3-30.1)
[2016-06-26] MEDS ORDERED: POTASSIUM CHLORIDE 25 MEQ EFFERVESCENT TAB PO ONE (11:00)
[2016-06-26] MEDS ORDERED: POTASSIUM CHLORIDE 10 MEQ CONTROLLED RELEASE TAB PO ONE ×2 (11:00→16:00)
[2016-06-26] MEDS ORDERED: CEFAZOLIN INJ 500 MG in SODIUM CHLORIDE 0.9% IRR BTL 500 ML IRRIGATION SCH (11:15)
[2016-06-26] MEDS ORDERED: CHLORHEXIDINE GLUCONATE 4% SOLN 120 ML BTL TOPICAL SCH (11:15)
[2016-06-26] MEDS ORDERED: SODIUM CHLORIDE 0.9% FLUSH 10 ML FLUSH IV FLUSH PRN (11:15)
[2016-06-26] MEDS ORDERED: METOPROLOL TARTRATE 25 MG TAB PO SCH (11:15)
[2016-06-26] MEDS ORDERED: INSULIN REGULAR (IV INFUSION) 100 UNITS in SODIUM CHLORIDE 0.9% INJ 100 ML IV SCH (11:15)
[2016-06-26] MEDS ORDERED: ceFAZolin 2 GM PREMIX 50 ML IV SCH (11:15)
[2016-06-26] MEDS ORDERED: PAPAVERINE INJ 60 MG, NITROGLYCERIN INJ 100 MCG, DILTIAZEM INJ 100 MG in SODIUM CHLORID... IRRIGATION SCH (11:15)
[2016-06-26] MEDS: DOCUSATE SODIUM 100 MG CAP PO SCH ×2 (11:32→20:17)
[2016-06-26] MEDS: METOPROLOL TARTRATE 25 MG TAB PO SCH ×3 (11:32→17:27)
[2016-06-26] MEDS: PANTOPRAZOLE SOD 40 MG DELAYED RELEASE TAB PO SCH (11:32)
[2016-06-26] MEDS: FUROSEMIDE 40 MG/4 ML VIAL IV PUSH SCH ×2 (11:33→20:17)
[2016-06-26 15:05] LABS: HEMOGLOBIN A1a 1.2 %; HEMOGLOBIN A1b 0.7 %; HEMOGLOBIN Ao 84.9 %; HEMOGLOBIN F 1.8 %; HEMOGLOBIN LA1C 1.9 %; HEMOGLOBIN P3 3.6 %
[2016-06-26 15:34] LABS: APTT (PATIENT) 35.6 SEC (24.3-30.1)
--- NOTE | 2016-06-26 15:54 | HHI.CCPN ---
Subjective Remarks/Hospital Course 06/25: 80 y/o man with 7 day history of bad heartburn. He tried gargling with listerine, drinking vinegar, pepto-bismol, burping with no relief. On arrival to ED trop elevated to 4, discussed with Dr. Moss who wanted to admit for ongoing evaluation. The patient has diffuse interstitial edema on CXR which is undoubtedly failure water. 06/26: Sitting up in bed. Shortness of breath improving. Diuresed well with Lasix. Cardiac catheterization done yesterday revealed triple-vessel disease for which CT surgery has evaluated patient for CABG. Objective Vital Signs Date Time Temp Pulse Resp B/P Pulse Ox O2 Delivery O2 Flow Rate FiO2 06/26/16 12:00 90 06/26/16 08:00 98.4 20 126/73 96 06/26/16 08:00 Nasal Cannula 6.00 06/25/16 07:50 50 Intake and Output 06/25/16 06/25/16 06/26/16 08:00 16:00 00:00 Intake Total 293 ml 270 ml 763 ml Output Total 900 ml 1600 ml 2450 ml Balance -607 ml -1330 ml -1687 ml Result Diagram: 06/26/16 0151 06/26/16 0330 Other Results Laboratory Tests Test 06/25/16 06/26/16 06/26/16 06/26/16 19:25 01:51 03:30 08:52 Activated Partial 33.5 SEC 35.7 SEC 40.8 SEC Thromboplast Time White Blood Count 9.6 TH/MM3 Red Blood Count 3.96 MIL/MM3 Hemoglobin 12.1 GM/DL Hematocrit 36.1 % Mean Corpuscular Volume 91.2 FL Mean Corpuscular Hemoglobin 30.7 PG Mean Corpuscular Hemoglobin 33.6 % Concent Red Cell Distribution Width 12.4 % Platelet Count 246 TH/MM3 Mean Platelet Volume 9.3 FL Neutrophils (%) (Auto) 76.2 % Lymphocytes (%) (Auto) 13.2 % Monocytes (%) (Auto) 9.4 % Eosinophils (%) (Auto) 1.0 % Basophils (%) (Auto) 0.2 % Neutrophils # (Auto) 7.3 TH/MM3 Lymphocytes # (Auto) 1.3 TH/MM3 Monocytes # (Auto) 0.9 TH/MM3 Eosinophils # (Auto) 0.1 TH/MM3 Basophils # (Auto) 0.0 TH/MM3 CBC Comment DIFF FINAL Differential Comment Hemoglobin A1c 5.5 % Sodium Level 134 MEQ/L Potassium Level 3.4 MEQ/L Chloride Level 92 MEQ/L Carbon Dioxide Level 32.6 MEQ/L Anion Gap 9 MEQ/L Blood Urea Nitrogen 14 MG/DL Creatinine 0.93 MG/DL Estimat Glomerular Filtration 78 ML/MIN Rate Random Glucose 124 MG/DL Calcium Level 8.4 MG/DL Total Bilirubin 0.5 MG/DL Aspartate Amino Transf 33 U/L (AST/SGOT) Alanine Aminotransferase 41 U/L (ALT/SGPT) Alkaline Phosphatase 52 U/L Total Protein 6.7 GM/DL Albumin 3.1 GM/DL Triglycerides Level 173 MG/DL Cholesterol Level 159 MG/DL LDL Cholesterol 75 MG/DL HDL Cholesterol 49.5 MG/DL Cholesterol/HDL Ratio 3.21 RATIO Test 06/26/16 15:00 Activated Partial 35.6 SEC Thromboplast Time Imaging Chest x-ray portable 06/26: Pulmonary edema with prominent infiltrates and right lower lobe Objective Remarks Head: Normal. Neck: Supple, airway patent Lungs: Good air entry bilaterally, bibasilar crackles, no wheezing Heart: NL S1S2, no m,r. + JVD. Abdomen: Benign, no guarding Extremities: Tepid but well perfused. No edema. Neuro: O X 3, conversant. Moves 4 limbs to command. A/P Assessment and Plan Assessment: 1. Hypoxemic Respiratory Failure. 2. NSTEMI, recent past 3. Hypertension. 4. Pulmonary edema Plan: 1. Titrated off BiPAP currently on nasal cannula 6 L/m. 2. Diuresing well with Lasix 3. Increase Lopressor to 25 mg 3 times a day 4. Restart home lisinopril 2.5 daily, norvasc 5 daily, statin. 5. Heparin gtt, ASA 6. Serial enzymes. 7. BNP. Discussed with Dr. Wolff. Discussed with Dr. Medley from CT surgery who is evaluating patient for CABG. Consult and transfer to hospitalist service for further medical management. Jacob Sherwood MD Jun 26, 2016 15:54
[2016-06-26 16:12] LABS: BLOOD, URINE NEG (NEG); COMMENT (UR) CULT NOT INDICATED; CULTURE IF INDICATED CULT NOT INDICATED; GLUCOSE,URINE NEG (NEG); KETONE, URINE NEG (NEG); MUCUS URINE FEW /lpf (OCC); NITRITE,URINE NEG (NEG); PH, URINE 6.5 (5.0-8.5); URINE COLOR LIGHT-YELLOW (YELLW/STRAW)
--- NOTE | 2016-06-26 16:56 | PD.CAR.PN ---
CVT Progress Note Subjective/Hospital Course: sts data discussed with pt RISK SCORES About the STS Risk Calculator Procedure: CAB Only Risk of Mortality: 1.979% Morbidity or Mortality: 16.178% Long Length of Stay: 7.591% Short Length of Stay: 31.534% Permanent Stroke: 1.137% Prolonged Ventilation: 10.79% DSW Infection: 0.548% Renal Failure: 3.102% Reoperation: 6.266% Objective: Vital Signs Date Time Temp Pulse Resp B/P Pulse Ox O2 Delivery O2 Flow Rate FiO2 06/26/16 12:00 90 06/26/16 10:00 94 06/26/16 08:00 98.4 82 20 126/73 96 06/26/16 08:00 82 06/26/16 08:00 98 Nasal Cannula 6.00 06/26/16 06:00 82 06/26/16 04:00 98.2 77 25 97/53 94 06/26/16 04:00 77 06/26/16 02:00 83 06/26/16 00:00 80 06/26/16 00:00 98.4 80 38 110/63 91 06/25/16 22:00 79 06/25/16 20:00 98.4 97 25 140/80 92 06/25/16 20:00 97 06/25/16 19:05 93 Nasal Cannula 6.00 06/25/16 19:00 91 Nasal Cannula 6.00 06/25/16 18:00 97 06/25/16 17:30 85 14 183/77 92 Labs: Laboratory Tests Test 06/26/16 06/26/16 06/26/16 08:52 13:47 15:00 Activated Partial 40.8 SEC 35.6 SEC Thromboplast Time (24.3-30.1) (24.3-30.1) Urine Color LIGHT-YELLOW (YELLW/STRAW) Urine Turbidity CLEAR (CLEAR) Urine pH 6.5 (5.0-8.5) Urine Specific [place] 1.008 (1.002-1.035) Urine Protein NEG mg/dL (NEG-TRACE) Urine Glucose (UA) NEG mg/dL (NEG) Urine Ketones NEG mg/dL (NEG) Urine Occult Blood NEG (NEG) Urine Nitrite NEG (NEG) Urine Bilirubin NEG (NEG) Urine Urobilinogen LESS THAN 2.0 MG/DL (LESS THAN 2.0) Urine Leukocyte Esterase NEG (NEG) Urine WBC LESS THAN 1 /hpf (0-5) Urine Mucus FEW /lpf (OCC) Microscopic Urinalysis Comment CULT NOT INDICATED Result Diagram: 06/26/16 0151 06/26/16 0330 Shanon Osorio Jun 26, 2016 16:56
--- NOTE | 2016-06-26 17:38 | RADRPT ---
EXAM DATE/TIME: 06/26/2016 15:44 [facility] COMPARISON: No previous studies available for comparison. INDICATIONS : Preop cardiac surgery. MEDICAL HISTORY : Hypercholesterolemia. Hypertension. Gastroesophageal reflux disease. SURGICAL HISTORY : Heart catheterization. ENCOUNTER: Initial ACUITY: 1 day PAIN SCORE: 0/10 LOCATION: Bilateral neck PEAK SYSTOLIC VELOCITIES (cm/sec): ICA/CCA RATIO: Right: 1.0 Left: 1.3 ICA: Right: 74 Left: 122 CCA: Right: 77 Left: 97 ECA: Right: 65 Left: 92 VERTEBRAL: Right: 43 antegrade Left: 41 antegrade Elevated flow velocities and ICA/CCA ratios have been found to correlate with increased degrees of vessel stenosis, calculated as percentage of diameter relative to a normal segment of distal ICA/CCA FINDINGS: Ultrasound of the carotid arteries was performed bilaterally using real-time Doppler and color Dopple r imaging. Examination of the right carotid artery demonstrates mild fibrous plaque within the bifurcation. No w aveform abnormalities are identified and no spectral broadening is seen. Examination of the left carotid artery demonstrates calcific plaque within the bulb. No waveform abno rmalities are identified and no spectral broadening is seen. There is antegrade flow in both vertebral arteries. CONCLUSION: 1. No evidence of hemodynamically significant lesion. Dorian Marie MD on June 26, 2016 at 17:36 Board Certified Radiologist. This report was verified electronically.
--- NOTE | 2016-06-26 18:57 | MB ---
cc: MAYE MEDLEY DATE OF CONSULTATION 06/26/16 HISTORY OF PRESENT ILLNESS An 80-year-old male who is a snowbird from the [place] area, here from November until June. He was going to be leaving this Wednesday. He apparently presented to the hospital with several day history of shortness of breath, intermittent heartburn that he had had for about 6-7 days. 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 The pain was apparently waxing and waning throughout the day. He took some antacid, Pepto-Bismol, for his heartburn. He had abnormal troponins 4.66. He was found to be in pulmonary edema and respiratory failure. They initially placed him on a BiPAP. Initial blood gas showed a pCO2 of 53. This was on a BiPap of 16 with EPAP of eight. He is currently now on six liters nasal cannula. He was diuresed and then scheduled for heart catheterization which was completed today by Dr. Wolff which showed EF of 40%, severe three-vessel disease. The LAD had a 90% stenosis proximally, 75% stenosis distally, diagonal had a 50% stenosis. The third obtuse marginal had a 60% eccentric stenosis in the midportion. The RCA was totally occluded proximally with some scant collaterals from the left circ. We were consulted to evaluate for coronary artery bypass grafting. However, in the meantime the patient is in the intensive care unit. They are slowly weaning his oxygen. They did a repeat chest x-ray that shows some unilateral possible consolidation on the right which was concerning for possible infiltrate, however, he did not come in with a fever and/or leukocytosis. CT scan of the chest is now pending. PAST MEDICAL HISTORY 1. Hypertension, 2. Hyperlipidemia. PAST SURGICAL HISTORY The patient denies having any surgery. ALLERGIES He has no known allergies. MEDICATIONS 1. Amlodipine 5 mg 2. Simvastatin 40 mg 3. lisinopril 12.5 p.o. daily. FAMILY HISTORY Mother at 84 from Alzheimer's. Father during heart surgery. SOCIAL HISTORY This is the patient's second marriage. No alcohol. Has one child. 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 REVIEW OF SYSTEMS GENERAL: No night sweats, fever, heat and cold intolerance. SKIN: No psoriasis, itching or hives. HEENT: No blurred vision, hearing loss. RESPIRATORY: Positive for cough, shortness of breath. CARDIOVASCULAR: As above in HPI. GASTROINTESTINAL: As above in HPI GENITOURINARY: No burning, frequency, urgency FIELD MERCHANDISER: No history of TIA, CVA, seizure disorder. ENDOCRINE: No history of diabetes and hypothyroidism PHYSICAL EXAMINATION VITAL SIGNS: blood pressure 126/70, heart rate of 90, afebrile GENERAL: Patient is awake, alert in no acute distress. HEENT: Head is normocephalic, atraumatic. Pupils equal and reactive. Oral mucosa pink, moist. NECK: Supple. Mild JVD. HEART: Heart sounds S1-S2 regular rate and rhythm. 1/6 systolic murmur best noted on the left upper sternal border. LUNGS: He has faint crackles in the bases, more on the right versus the left ABDOMEN: Soft, nontender. No masses or organomegaly. EXTREMITIES: No cyanosis, clubbing or edema. LABORATORY DATA Hemoglobin 12, hematocrit of 36, white cell count 9.6, platelet count 246. Sodium 134, potassium 3.4, BUN of 14, creatinine 0.93, troponin 3.57. BNP is 759, triglycerides 173, cholesterol 154, LDL of 75. The patient is currently on a heparin drip. Urinalysis is unremarkable. MRSA non-detected. Micro - blood cultures no growth in 24 hours. IMAGING STUDIES Chest x-ray as above. CT chest is pending. IMPRESSION This is a very pleasant 80-year-old male with multivessel disease, EF of 40% following a [id number] NV. RECOMMENDATIONS Continue current medications to include Statin, aspirin. Recommend starting a low dose beta vivian if tolerated. In the meantime, he does have the evidence of pulmonary edema which is improving probable secondary to his non-STEMI and would continue the diuretics, DC all IV fluids except for his heparin drip. Follow up CT chest wall without contrast to evaluate possible right-sided infiltrate. Cardiac films have been evaluated by Dr. Maye Medley. Plan will be for coronary artery bypass grafting. We will tentatively schedule for Wednesday, however, prior to that evaluation of his CT chest will be in order. Further planning as per Dr. Maye Medley. Dictated by MICHELLE Ennis Maye MD CARI Kapadia/ /5:01 PM /9:07 AM
--- NOTE | 2016-06-26 19:50 | RADRPT ---
EXAM DATE/TIME: 06/26/2016 18:18 [facility] COMPARISON: No previous studies available for comparison. INDICATIONS : PreOp cardiac surgery. MEDICAL HISTORY : Hypercholesterolemia. Hypertension. Gastroesophageal reflux disease. SURGICAL HISTORY : Heart catheterization. ENCOUNTER: Initial ACUITY: 1 day PAIN SCORE: 0/10 LOCATION: Bilateral leg. TECHNIQUE: Venous ultrasound of the left and right leg was performed from the inguinal ligament to the proximal calf. Real-time, color Doppler and spectral tracing, compression and augmentation techniques were us ed. FINDINGS: RIGHT LEG: There is normal compressibility of the deep venous system from the inguinal region to the proximal ca lf. No echogenic clot is seen in the lumen of the common femoral, femoral, popliteal, and posterior tibial veins. There is a normal response of the venous system to proximal and distal augmentation an d respiration. LEFT LEG: There is normal compressibility of the deep venous system from the inguinal region to the proximal ca lf. No echogenic clot is seen in the lumen of the common femoral, femoral, popliteal, and posterior tibial veins. There is a normal response of the venous system to proximal and distal augmentation an d respiration. CONCLUSION: No DVT. Danny Gonzalez MD on June 26, 2016 at 19:47 Board Certified Radiologist. This report was verified electronically.
--- NOTE | 2016-06-26 20:00 | RADRPT ---
EXAM DATE/TIME: 06/26/2016 18:26 [facility] COMPARISON: No previous studies available for comparison. INDICATIONS : PreOp cardiac surgery. MEDICAL HISTORY : Hypercholesterolemia. Hypertension. Gastroesophageal reflux disease. SURGICAL HISTORY : Heart catheterization. ENCOUNTER: Initial ACUITY: 1 day PAIN SCORE: 0/10 LOCATION: Bilateral leg. GREATER SAPHENOUS VEIN THIGH: PROXIMAL: Right 3 mm Left 4 mm MID: Right 3 mm Left 4 mm DISTAL: Right 3 mm Left 4 mm CALF: PROXIMAL: Right 2 mm Left 3 mm MID: Right 1 mm Left 2 mm DISTAL: Right 1 mm Left 2 mm FINDINGS: The venous system of the lower extremities are patent by color Doppler imaging. Measurements of the leg veins (in mm) are listed above. CONCLUSION: Venous mapping as delineated above. Danny Gonzalez MD on June 26, 2016 at 19:58 Board Certified Radiologist. This report was verified electronically.
[2016-06-26] MEDS: PRAVASTATIN SOD 40 MG TAB PO SCH (20:17)
[2016-06-26] MEDS: SODIUM CHLORIDE 0.9% FLUSH 10 ML FLUSH IV FLUSH SCH (20:17)
[2016-06-26] MEDS: POTASSIUM CHLORIDE 20 MEQ CONTROLLED RELEASE TAB PO SCH (20:17)
[2016-06-26 21:59] LABS: APTT (PATIENT) 44.2 SEC (24.3-30.1)
[2016-06-27] VITALS (26 sets, daily range): BP systolic 103–148; BP diastolic 60–84; PULSE 54–92; RESP 16–18; TEMP 97.4–98.8; O2SAT 95–99
[2016-06-27] MEDS: CHLORHEXIDINE GLUCONATE 2 % 1 PACK (2 CLOTHS)(taper/protocol) TOPICAL SCH (03:24)
[2016-06-27 05:50] LABS: APTT (PATIENT) 35.3 SEC (24.3-30.1)
[2016-06-27] MEDS: HEPARIN SODIUM - IV 10,000 UNITS/10 ML VIAL IV PRN ×2 (06:55→15:38)
[2016-06-27] MEDS: PANTOPRAZOLE SOD 40 MG DELAYED RELEASE TAB PO SCH (08:52)
[2016-06-27] MEDS: POTASSIUM CHLORIDE 20 MEQ CONTROLLED RELEASE TAB PO SCH ×2 (08:52→20:39)
[2016-06-27] MEDS: SODIUM CHLORIDE 0.9% FLUSH 10 ML FLUSH IV FLUSH SCH ×2 (08:52→20:40)
[2016-06-27] MEDS: DOCUSATE SODIUM 100 MG CAP PO SCH ×2 (08:53→20:39)
[2016-06-27] MEDS: METOPROLOL TARTRATE 25 MG TAB PO SCH ×3 (08:53→17:35)
[2016-06-27] MEDS: ASPIRIN EC 81 MG TABEC PO SCH (08:53)
[2016-06-27] MEDS: FUROSEMIDE 40 MG/4 ML VIAL IV PUSH SCH ×2 (08:54→20:40)
--- NOTE | 2016-06-27 09:01 | HHI.PR ---
Subjective Remarks Follow-up hypoxemic respiratory failure, NSTEMI, hypertension Patient's only feels okay this morning. He did have a dry cough for her night however it has resolved. He denies any fevers or chills. He denies any chest pain or shortness of breath at this time. He would like to get up and walk around and is hopeful to be able to shave his toure. He has not yet had the CT chest done. Objective Vitals Vital Signs Date Time Temp Pulse Resp B/P Pulse Ox O2 Delivery O2 Flow Rate FiO2 06/27/16 07:00 78 06/27/16 06:00 82 06/27/16 05:00 80 06/27/16 04:00 92 06/27/16 04:00 98.4 84 18 103/60 97 06/27/16 03:00 71 06/27/16 02:00 72 06/27/16 01:00 72 06/27/16 00:00 76 06/27/16 00:00 98.8 72 18 109/64 98 06/26/16 23:00 77 06/26/16 22:00 83 06/26/16 21:30 97.5 85 18 119/78 97 06/26/16 20:00 98.1 87 26 132/81 94 06/26/16 20:00 87 06/26/16 19:00 96 Nasal Cannula 6.00 06/26/16 18:00 84 06/26/16 16:00 97.6 84 22 101/59 94 06/26/16 16:00 84 06/26/16 14:00 81 06/26/16 12:00 90 06/26/16 12:00 98.6 90 20 129/71 95 06/26/16 10:00 94 I/O 06/26/16 06/26/16 06/26/16 06/27/16 06/27/16 06/27/16 07:00 15:00 23:00 07:00 15:00 23:00 Intake Total 717 ml 589 ml 344 ml Output Total 300 ml 1200 ml 900 ml Balance 417 ml -611 ml -556 ml Intake Oral 480 ml 240 ml IV Total 717 ml 109 ml 104 ml Output Urine Total 300 ml 1200 ml 900 ml # Bowel Movements 1 Result Diagram: 06/26/16 0151 06/26/16 0330 Imaging Last Impressions Chest X-Ray 06/26/16 0600 Signed Impressions: Service Date/Time: Sunday, June 26, 2016 04:38 - CONCLUSION: Decreasing edema but worsening right-sided pneumonia. Danny Lamar MD Lower Extremity Ultrasound 06/26/16 0000 Signed Impressions: Service Date/Time: Sunday, June 26, 2016 18:26 - CONCLUSION: Venous mapping as delineated above. Danny Gonzalez MD Carotid Artery Ultrasound 06/26/16 0000 Signed Impressions: Service Date/Time: Sunday, June 26, 2016 15:44 - CONCLUSION: 1. No evidence of hemodynamically significant lesion. Dorian Marie MD Objective Remarks Head: Normal. Lungs: Good air entry bilaterally, no wheezing or crackles auscultated at this time. Heart: Regular rate and rhythm, no murmurs, nasal cannula in place Abdomen: Benign, no guarding Extremities: Moves extremities well. Neuro: O X 3, conversant. A/P Assessment and Plan 1. Hypoxemic Respiratory Failure. 2. NSTEMI 3. Hypertension. 4. Pulmonary edema Plan: 1. Currently on nasal cannula, encourage use of incentive spirometry every hour while awake. CT chest has been ordered however not yet available. We'll review in if pneumonia is noted, we will start antibiotics. At this time, patient is asymptomatic. 2. Status post cardiac catheter showing three-vessel disease. Diuresing well with Lasix, continue for now. Monitor creatinine and potassium levels. Cardiology recommends continuing MICK inhibitor, beta vivian and heparin drip. Patient is tentatively scheduled for CABG on Wednesday. 3. on Lopressor to 25 mg 3 times a day 4. on home lisinopril 2.5 daily, norvasc 5 daily, statin. 5. Heparin gtt, ASA Discharge Planning Patient is tentatively scheduled for CABG on Wednesday Follow-up CT chest. Consider starting antibiotics for possible pneumonia if present on CT. Maricruz Gaming MD Jun 27, 2016 09:01
--- NOTE | 2016-06-27 10:28 | RADRPT ---
EXAM DATE/TIME: 06/27/2016 10:12 [place] COMPARISON: CHEST SINGLE AP, June 26, 2016, 4:38. INDICATIONS : Evaluate for pneumonia. RADIATION DOSE: 6.03 CTDIvol (mGy) MEDICAL HISTORY : Cardiovascular disease. Hypertension. SURGICAL HISTORY : None. ENCOUNTER: Initial ACUITY: 1 day PAIN SCALE: 0/10 LOCATION: Bilateral chest TECHNIQUE: Volumetric scanning of the chest was performed. Using automated exposure control and adjustment of t he mA and/or kV according to patient size, radiation dose was kept as low as reasonably achievable to obtain optimal diagnostic quality images. FINDINGS: There is patchy parenchymal and draped in the right upper lobe, right middle lobe and mild consolidat ion in the right lower lobe and passive atelectasis secondary to a small right-sided pleural effusion . There are mild dependent atelectatic changes in relation to a small left-sided pleural effusion as well. There is a tiny lateral site left lobe of the liver. Atherosclerotic calcifications of the aort a and coronary arteries are noted osseous structures are intact. CONCLUSION: Patchy right lung airspace disease, small bilateral effusions. Atherosclerosis. Mateo Moseley MD on June 27, 2016 at 10:25 Board Certified Radiologist. This report was verified electronically.
[2016-06-27] MEDS: HEPARIN-D5W INJ 250 ML IV SCH (13:14)
[2016-06-27 15:13] LABS: APTT (PATIENT) 31.5 SEC (24.3-30.1)
[2016-06-27] MEDS: PRAVASTATIN SOD 40 MG TAB PO SCH (20:40)
[2016-06-27 22:10] LABS: APTT (PATIENT) 49.1 SEC (24.3-30.1)
[2016-06-28] VITALS (27 sets, daily range): BP systolic 100–144; BP diastolic 63–85; PULSE 66–94; RESP 16–20; TEMP 97.7–98.7; O2SAT 94–100
[2016-06-28] MEDS: CHLORHEXIDINE GLUCONATE 2 % 1 PACK (2 CLOTHS)(taper/protocol) TOPICAL SCH (04:00)
[2016-06-28 04:16] LABS: AUTOMATED NEUTROPHIL # 4.9 TH/MM3 (1.8-7.7); BASOPHIL # 0.1 TH/MM3 (0-0.2); BASOPHIL % 0.7 % (0.0-2.0); EOSINOPHIL # 0.4 TH/MM3 (0-0.4); EOSINOPHIL % 5.2 % (0.0-4.0); HEMATOCRIT 33.5 % (39.0-51.0); HEMO FLAGS DIFF FINAL; LYMPH % 21.6 % (9.0-44.0); LYMPHOCYTE # 1.7 TH/MM3 (1.0-4.8); MEAN CELL VOLUME 91.2 FL (80.0-100.0); MEAN CORPUSCULAR HEMOGLOBIN 31.7 PG (27.0-34.0); MEAN CORPUSCULAR HGB CONC 34.8 % (32.0-36.0); MONO % 9.4 % (0.0-8.0); NEUT % 63.1 % (16.0-70.0); PLATELET COUNT 259 TH/MM3 (150-450); RED BLOOD COUNT 3.67 MIL/MM3 (4.50-5.90); RED CELL DISTRIBUTION WIDTH 12.2 % (11.6-17.2); WHITE BLOOD COUNT 7.8 TH/MM3 (4.0-11.0)
[2016-06-28 04:28] LABS: APTT (PATIENT) 60.3 SEC (24.3-30.1); INTERNATIONAL NORMALIZED RATIO 1.1 RATIO; PROTHROMBIN TIME - PATIENT 11.9 SEC (9.8-11.6)
[2016-06-28 04:41] LABS: BICARBONATE 32.4 MEQ/L (21.0-32.0); POTASSIUM 4.1 MEQ/L (3.5-5.1)
[2016-06-28] MEDS ORDERED: LEVOFLOXACIN 750 MG PREMIX INJ 150 ML IV SCH (09:00)
[2016-06-28] MEDS: HEPARIN-D5W INJ 250 ML IV SCH (09:31)
--- NOTE | 2016-06-28 09:32 | HHI.PR ---
Subjective Remarks Feels well. He denies any chest pain, shortness of breath, nausea or vomiting. He ate all his breakfast with no difficulty. He tells me that he feels constipated Objective Vitals Vital Signs Date Time Temp Pulse Resp B/P Pulse Ox O2 Delivery O2 Flow Rate FiO2 06/28/16 08:56 97 Nasal Cannula 2.00 06/28/16 08:00 84 06/28/16 07:00 97 Nasal Cannula 2.00 06/28/16 07:00 97.9 94 16 144/85 97 06/28/16 07:00 71 06/28/16 06:00 82 06/28/16 05:00 68 06/28/16 04:00 68 06/28/16 03:00 68 06/28/16 03:00 98.5 79 18 100/63 96 06/28/16 02:00 66 06/28/16 01:00 66 06/28/16 00:00 72 06/27/16 23:00 98.7 80 16 114/70 96 06/27/16 23:00 66 06/27/16 22:00 80 06/27/16 21:05 97 Nasal Cannula 2.00 06/27/16 21:00 86 06/27/16 20:00 76 06/27/16 19:27 98 Nasal Cannula 4.00 06/27/16 19:00 95 Nasal Cannula 4.00 06/27/16 19:00 72 06/27/16 19:00 97.8 75 16 130/79 95 06/27/16 18:01 74 06/27/16 17:00 73 06/27/16 16:00 68 06/27/16 15:00 97.4 81 17 111/72 96 06/27/16 15:00 85 06/27/16 14:00 84 06/27/16 13:00 64 06/27/16 12:00 54 06/27/16 11:00 97.6 87 18 110/63 99 06/27/16 11:00 87 06/27/16 10:00 86 I/O 06/27/16 06/27/16 06/27/16 06/28/16 06/28/16 06/28/16 07:00 15:00 23:00 07:00 15:00 23:00 Intake Total 344 ml 1055 ml 634 ml Output Total 900 ml 700 ml 950 ml Balance -556 ml 355 ml -316 ml Intake Oral 240 ml 720 ml 480 ml IV Total 104 ml 335 ml 154 ml Output Urine Total 900 ml 700 ml 950 ml Result Diagram: 06/28/163 06/28/16 0403 Imaging Last Impressions Chest X-Ray 06/26/16 0600 Signed Impressions: Service Date/Time: Sunday, June 26, 2016 04:38 - CONCLUSION: Decreasing edema but worsening right-sided pneumonia. Danny Lamar MD Lower Extremity Ultrasound 06/26/16 0000 Signed Impressions: Service Date/Time: Sunday, June 26, 2016 18:26 - CONCLUSION: Venous mapping as delineated above. Danny Gonzalez MD Chest CT 06/26/16 0000 Signed Impressions: Service Date/Time: Monday, June 27, 2016 10:12 - CONCLUSION: Patchy right lung airspace disease, small bilateral effusions. Atherosclerosis. Mateo Moseley MD Carotid Artery Ultrasound 06/26/16 0000 Signed Impressions: Service Date/Time: Sunday, June 26, 2016 15:44 - CONCLUSION: 1. No evidence of hemodynamically significant lesion. Dorian Marie MD Objective Remarks Head: Normal. Lungs: Good air entry bilaterally, no wheezing or crackles auscultated at this time. Heart: Regular rate and rhythm, no murmurs, nasal cannula in place Abdomen: Benign, no guarding Extremities: Moves extremities well. Neuro: O X 3, conversant. A/P Assessment and Plan 1. Hypoxemic Respiratory Failure. 2. NSTEMI 3. Hypertension. 4. Pulmonary edema Plan: 1. Currently on nasal cannula, encourage use of incentive spirometry every hour while awake. CT chest personally reviewed by me and I also reviewed report and it shows small consolidation in the right lower lung. At this time I did calculate the patient's creatinine clearance and it's at 32.5. We'll start him on Levaquin 750 mg IV every 48 hours to cover for possible pneumonia. Monitor patient clinically. At this time, patient is not coughing, is afebrile. 2. Status post cardiac catheter showing three-vessel disease. Diuresing well with Lasix, continue for now. Monitor creatinine and potassium levels. Cardiology recommends continuing MICK inhibitor, beta vivian and heparin drip. Patient is tentatively scheduled for CABG on Wednesday. 3. on Lopressor to 25 mg 3 times a day 4. lisinopril held for possible procedure, resumed postprocedure. norvasc 10 pravastatin. 5. Heparin gtt, ASA Discharge Planning Patient is tentatively scheduled for CABG on Wednesday On Levaquin for possible beginning pneumonia noted on CT chest. Encourage use of incentive spirometer Awaiting final recommendations from CT surgery. Blood cultures reviewed and are negative 2 days. Maricruz Gaming MD Jun 28, 2016 09:32
[2016-06-28] MEDS: SODIUM CHLORIDE 0.9% FLUSH 10 ML FLUSH IV FLUSH SCH ×2 (09:36→22:01)
[2016-06-28] MEDS: ASPIRIN EC 81 MG TABEC PO SCH (09:37)
[2016-06-28] MEDS: POTASSIUM CHLORIDE 20 MEQ CONTROLLED RELEASE TAB PO SCH ×2 (09:37→22:01)
[2016-06-28] MEDS: FUROSEMIDE 40 MG/4 ML VIAL IV PUSH SCH ×2 (09:37→22:00)
[2016-06-28] MEDS: PANTOPRAZOLE SOD 40 MG DELAYED RELEASE TAB PO SCH (09:37)
[2016-06-28] MEDS: DOCUSATE SODIUM 100 MG CAP PO SCH ×2 (09:38→22:00)
[2016-06-28] MEDS: METOPROLOL TARTRATE 25 MG TAB PO SCH ×3 (09:38→17:29)
[2016-06-28] MEDS: POLYETHYLENE GLYCOL 17 GM PKG PO SCH (09:45)
[2016-06-28] MEDS ORDERED: MAGNESIUM HYDROXIDE SUSP 30 ML CUP PO PRN (09:45)
[2016-06-28] MEDS: PRAVASTATIN SOD 40 MG TAB PO SCH (22:00)
[2016-06-29] VITALS (25 sets, daily range): BP systolic 111–142; BP diastolic 65–87; PULSE 64–92; RESP 16–18; TEMP 97.8–98.1; O2SAT 95–100
[2016-06-29] MEDS: HEPARIN-D5W INJ 250 ML IV SCH (02:37)
[2016-06-29] MEDS: CHLORHEXIDINE GLUCONATE 2 % 1 PACK (2 CLOTHS)(taper/protocol) TOPICAL SCH (04:00)
[2016-06-29 06:45] LABS: APTT (PATIENT) 54.8 SEC (24.3-30.1)
[2016-06-29 07:01] LABS: BICARBONATE 32.3 MEQ/L (21.0-32.0); POTASSIUM 4.1 MEQ/L (3.5-5.1)
[2016-06-29] MEDS: POLYETHYLENE GLYCOL 17 GM PKG PO SCH (08:10)
[2016-06-29] MEDS: POTASSIUM CHLORIDE 20 MEQ CONTROLLED RELEASE TAB PO SCH ×2 (08:10→21:10)
[2016-06-29] MEDS: PANTOPRAZOLE SOD 40 MG DELAYED RELEASE TAB PO SCH (08:10)
[2016-06-29] MEDS: ASPIRIN EC 81 MG TABEC PO SCH (08:10)
[2016-06-29] MEDS: DOCUSATE SODIUM 100 MG CAP PO SCH ×2 (08:10→21:10)
[2016-06-29] MEDS: METOPROLOL TARTRATE 25 MG TAB PO SCH ×3 (08:10→17:10)
[2016-06-29] MEDS: FUROSEMIDE 40 MG/4 ML VIAL IV PUSH SCH ×2 (08:10→21:10)
--- NOTE | 2016-06-29 08:10 | PD.CARD.PN ---
Subjective Subjective Remarks Denies CP, dyspnea, dizziness, palpitations. Minimal nonproductive cough. Slept well. Objective Medications Item Value Date Time Amlodipine 10 mg 06/27/16 0900 Besylate DAILY/PO 06/28/16 0938 (Norvasc) Aspirin 81 mg 06/27/16 0900 (Ecotrin Ec) DAILY/PO 06/28/16 0937 Potassium Chloride 20 meq 06/26/16 2100 (KCl) Q12HR/PO 06/28/16 2201 Metoprolol 12.5 mg 06/26/16 1115 Tartrate [employer]/PO (Lopressor) Pravastatin Sodium 80 mg 06/25/16 2100 (Pravachol) HS/PO 06/28/16 2200 Metoprolol 25 mg 06/25/16 1830 Tartrate TID/PO 06/28/16 1729 (Lopressor) Furosemide 40 mg 06/25/16 1830 (Lasix Inj) Q12HR/IV PUSH 06/28/16 2200 Labetalol HCl 10 mg 06/25/16 1815 (Trandate Inj) Q4H PRN/IV PUSH Heparin Sodium/ 250 ml @ 0 mls/hr 06/25/16 1400 Dextrose TITRATE/IV 06/29/16 0237 Vital Signs / I&O Vital Signs Date Time Temp Pulse Resp B/P Pulse Ox O2 Delivery O2 Flow Rate FiO2 06/29/16 07:45 99 Nasal Cannula 2.00 06/29/16 07:32 Nasal Cannula 2.00 06/29/16 06:00 80 06/29/16 05:00 64 06/29/16 04:00 78 06/29/16 03:00 98.0 86 18 111/65 95 06/29/16 03:00 84 06/29/16 02:00 76 06/29/16 01:00 86 06/29/16 00:00 76 06/28/16 23:00 91 06/28/16 23:00 98.7 85 20 123/74 94 06/28/16 22:00 84 06/28/16 21:00 84 06/28/16 20:00 80 06/28/16 19:00 98 Nasal Cannula 2.00 06/28/16 19:00 98.4 83 18 121/80 98 06/28/16 19:00 81 06/28/16 18:05 84 06/28/16 17:00 85 06/28/16 16:00 75 06/28/16 15:01 97.7 69 17 110/67 98 06/28/16 15:00 75 06/28/16 14:01 81 06/28/16 13:01 77 06/28/16 12:07 84 06/28/16 11:08 97.7 88 16 129/69 100 06/28/16 11:00 87 06/28/16 10:00 92 06/28/16 09:00 86 06/28/16 08:56 97 Nasal Cannula 2.00 I/O 06/28/16 06/28/16 06/28/16 06/29/16 06/29/16 06/29/16 07:00 15:00 23:00 07:00 15:00 23:00 Intake Total 634 ml 734 ml Output Total 950 ml 800 ml Balance -316 ml -66 ml Intake Oral 480 ml 420 ml IV Total 154 ml 314 ml Output Urine Total 950 ml 800 ml # Bowel Movements 1 Physical Exam GENERAL: Well developed, well nourished. No acute distress. HEENT: Jugular venous pressure is normal. CHEST: Diminished breath sounds bases. CARDIAC: Regular rate and rhythm without S3, S4, or murmur. ABDOMEN: Soft, nontender, no hepatosplenomegaly. Bowel sounds present. EXTREMITIES: No clubbing, cyanosis, or edema. Laboratory Laboratory Tests Test 06/29/16 05:33 Activated Partial 54.8 SEC Thromboplast Time Sodium Level 135 MEQ/L Potassium Level 4.1 MEQ/L Chloride Level 95 MEQ/L Carbon Dioxide Level 32.3 MEQ/L Anion Gap 8 MEQ/L Blood Urea Nitrogen 23 MG/DL Creatinine 0.98 MG/DL Estimat Glomerular Filtration 74 ML/MIN Rate Random Glucose 106 MG/DL Calcium Level 9.7 MG/DL Blood Type A POSITIVE Antibody Screen NEGATIVE Crossmatch Leukocyte-Reduced Red Blood Cells Blood Bank Comment Assessment and Plan Problem List: (1) CAD (coronary artery disease) Assessment and Plan: Status post NSTEMI. Severe 3 vessel CAD by cath. Stable over the weekend. No further angina. Await CABG. Available PRN. (2) Congestive heart failure (CHF) Assessment and Plan: EF ~ 40% by echo and cath. Symptomatically improved with good diuresis. Cont same. Consider change to oral Lasix. (3) Hypertension Assessment and Plan: Normotensive. Cont same. (4) Hyperlipidemia Assessment and Plan: Fairly good lipid profile with LDL 75. Continue statin. Code Status full code Discussed Condition With patient Problem Qualifiers (1) CAD (coronary artery disease): Qualified Code: I25.110 - Coronary artery disease involving [place] coronary artery of [place] heart with unstable angina pectoris (2) Congestive heart failure (CHF): Qualified Code: I50.21 - Acute systolic congestive heart failure (3) Hypertension: Qualified Code: I10 - Essential hypertension (4) Hyperlipidemia: Qualified Code: E78.2 - Mixed hyperlipidemia Ludwin Wolff MD June 29, 2016 08:10
[2016-06-29] MEDS: SODIUM CHLORIDE 0.9% FLUSH 10 ML FLUSH IV FLUSH SCH ×2 (08:11→21:11)
--- NOTE | 2016-06-29 09:13 | HHI.PR ---
Subjective Remarks Patient feels well this morning. Denies any shortness of breath, cough, fevers or chills. Patient currently reading a book and tells me it is interesting. Objective Vitals Vital Signs Date Time Temp Pulse Resp B/P Pulse Ox O2 Delivery O2 Flow Rate FiO2 06/29/16 07:45 99 Nasal Cannula 2.00 06/29/16 07:32 Nasal Cannula 2.00 06/29/16 06:00 80 06/29/16 05:00 64 06/29/16 04:00 78 06/29/16 03:00 98.0 86 18 111/65 95 06/29/16 03:00 84 06/29/16 02:00 76 06/29/16 01:00 86 06/29/16 00:00 76 06/28/16 23:00 91 06/28/16 23:00 98.7 85 20 123/74 94 06/28/16 22:00 84 06/28/16 21:00 84 06/28/16 20:00 80 06/28/16 19:00 98 Nasal Cannula 2.00 06/28/16 19:00 98.4 83 18 121/80 98 06/28/16 19:00 81 06/28/16 18:05 84 06/28/16 17:00 85 06/28/16 16:00 75 06/28/16 15:01 97.7 69 17 110/67 98 06/28/16 15:00 75 06/28/16 14:01 81 06/28/16 13:01 77 06/28/16 12:07 84 06/28/16 11:08 97.7 88 16 129/69 100 06/28/16 11:00 87 06/28/16 10:00 92 I/O 06/28/16 06/28/16 06/28/16 06/29/16 06/29/16 06/29/16 07:00 15:00 23:00 07:00 15:00 23:00 Intake Total 634 ml 734 ml Output Total 950 ml 800 ml Balance -316 ml -66 ml Intake Oral 480 ml 420 ml IV Total 154 ml 314 ml Output Urine Total 950 ml 800 ml # Bowel Movements 1 Result Diagram: 06/28/16 0403 06/29/16 0533 Imaging Last Impressions Chest X-Ray 06/26/16 0600 Signed Impressions: Service Date/Time: Sunday, June 26, 2016 04:38 - CONCLUSION: Decreasing edema but worsening right-sided pneumonia. Danny Lamar MD Lower Extremity Ultrasound 06/26/16 0000 Signed Impressions: Service Date/Time: Sunday, June 26, 2016 18:26 - CONCLUSION: Venous mapping as delineated above. Danny Gonzalez MD Chest CT 06/26/16 0000 Signed Impressions: Service Date/Time: Monday, June 27, 2016 10:12 - CONCLUSION: Patchy right lung airspace disease, small bilateral effusions. Atherosclerosis. Mateo Moseley MD Carotid Artery Ultrasound 06/26/16 0000 Signed Impressions: Service Date/Time: Sunday, June 26, 2016 15:44 - CONCLUSION: 1. No evidence of hemodynamically significant lesion. Dorian Marie MD Objective Remarks Head: Normal. Lungs: Good air entry bilaterally, no wheezing or crackles auscultated at this time. Heart: Regular rate and rhythm, no murmurs, nasal cannula in place Abdomen: Benign, no guarding Extremities: Moves extremities well. Neuro: O X 3, conversant. A/P Assessment and Plan 1. Hypoxemic Respiratory Failure. 2. NSTEMI 3. Hypertension. 4. Pulmonary edema Plan: 1. Currently on nasal cannula, encourage use of incentive spirometry every hour while awake. CT chest personally reviewed by me and I also reviewed report and it shows small consolidation in the right lower lung. At this time I did calculate the patient's creatinine clearance and it's at 32.5. Currently on Levaquin 750 mg IV every 48 hours to cover for possible pneumonia. Monitor patient clinically. At this time, patient is not coughing, is afebrile. 2. Status post cardiac catheter showing three-vessel disease. Diuresing well with Lasix, continue for now. Monitor creatinine and potassium levels. Cardiology recommends continuing MICK inhibitor, beta vivian and heparin drip. Patient is tentatively scheduled for CABG on Wednesday. 3. on Lopressor to 25 mg 3 times a day 4. lisinopril held for possible procedure, resumed postprocedure.on norvasc and pravastatin. 5. Heparin gtt, ASA Discharge Planning Patient is tentatively scheduled for CABG on Wednesday On Levaquin for possible beginning pneumonia noted on CT chest, patient is doing well clinically. Encourage use of incentive spirometer Awaiting final recommendations from CT surgery. Blood cultures reviewed and are negative 3 days. Maricruz Gaming MD June 29, 2016 09:13
[2016-06-29] MEDS: ENALAPRIL MALEATE 2.5 MG TAB PO SCH (09:23)
[2016-06-29] MEDS: LEVOFLOXACIN 750 MG PREMIX INJ 150 ML IV SCH (12:00)
--- NOTE | 2016-06-29 12:21 | PD.CAR.PN ---
CVT Progress Note Objective: Vital Signs Date Time Temp Pulse Resp B/P Pulse Ox O2 Delivery O2 Flow Rate FiO2 06/29/16 08:00 97.8 92 18 141/69 100 06/29/16 08:00 91 06/29/16 07:45 99 Nasal Cannula 2.00 06/29/16 07:32 Nasal Cannula 2.00 06/29/16 06:00 80 06/29/16 05:00 64 06/29/16 04:00 78 06/29/16 03:00 98.0 86 18 111/65 95 06/29/16 03:00 84 06/29/16 02:00 76 06/29/16 01:00 86 06/29/16 00:00 76 06/28/16 23:00 91 06/28/16 23:00 98.7 85 20 123/74 94 06/28/16 22:00 84 06/28/16 21:00 84 06/28/16 20:00 80 06/28/16 19:00 98 Nasal Cannula 2.00 06/28/16 19:00 98.4 83 18 121/80 98 06/28/16 19:00 81 06/28/16 18:05 84 06/28/16 17:00 85 06/28/16 16:00 75 06/28/16 15:01 97.7 69 17 110/67 98 06/28/16 15:00 75 06/28/16 14:01 81 06/28/16 13:01 77 Labs: Laboratory Tests Test 06/29/16 06/29/16 05:33 09:27 Activated Partial 54.8 SEC Thromboplast Time (24.3-30.1) Sodium Level 135 MEQ/L (136-145) Potassium Level 4.1 MEQ/L (3.5-5.1) Chloride Level 95 MEQ/L (98-107) Carbon Dioxide Level 32.3 MEQ/L (21.0-32.0) Anion Gap 8 MEQ/L (5-15) Blood Urea Nitrogen 23 MG/DL (7-18) Creatinine 0.98 MG/DL (0.60-1.30) Estimat Glomerular Filtration 74 ML/MIN (>89) Rate Random Glucose 106 MG/DL (74-106) Calcium Level 9.7 MG/DL (8.5-10.1) Blood Type A POSITIVE A POSITIVE Antibody Screen NEGATIVE Crossmatch Leukocyte-Reduced Red Blood Cells Blood Bank Comment Result Diagram: 06/28/16 0403 06/29/16 0533 (1) CAD (coronary artery disease) Plan: Status post NSTEMI. Severe 3 vessel CAD by cath. Stable over the weekend. No further angina. Await CABG. Available PRN. (2) Congestive heart failure (CHF) Plan: EF ~ 40% by echo and cath. Symptomatically improved with good diuresis. Cont same. Consider change to oral Lasix. (3) Hypertension Plan: Normotensive. Cont same. (4) Hyperlipidemia Plan: Fairly good lipid profile with LDL 75. Continue statin. Problem Qualifiers (1) CAD (coronary artery disease): Qualified Code: I25.110 - Coronary artery disease involving [place] coronary artery of [place] heart with unstable angina pectoris (2) Congestive heart failure (CHF): Qualified Code: I50.21 - Acute systolic congestive heart failure (3) Hypertension: Qualified Code: I10 - Essential hypertension (4) Hyperlipidemia: Qualified Code: E78.2 - Mixed hyperlipidemia Shanon Osorio June 29, 2016 12:21
--- NOTE | 2016-06-29 14:06 | PD.CAR.PN ---
CVT Progress Note Subjective/Hospital Course: 80/ male from [place] here with his as alexander, admitted with NSTEMI , acute CHF / pulm edema / right lower lobe Pneumonia underwent cardiac cath by Dr Wolff, multivessel disease EF 40%. Pt initially admitted to [facility], diuresed and started on antibiotics. Pt is now scheduled for surgery on 06/30 PMH: HTN, HLP 06/29 pt for OR in am no chest pain, or SOB Objective: GENERAL: SKIN: Warm and dry. HEAD: Normocephalic. EYES: No scleral icterus. No injection or drainage. NECK: Supple, trachea midline. No JVD or lymphadenopathy. CARDIOVASCULAR: Regular rate and rhythm without murmurs, gallops, or rubs. RESPIRATORY: diminished in bases Breath sounds equal bilaterally. No accessory muscle use. GASTROINTESTINAL: Abdomen soft, non-tender, nondistended. MUSCULOSKELETAL: No cyanosis, or edema. BACK: Nontender without obvious deformity. No CVA tenderness. Vital Signs Date Time Temp Pulse Resp B/P Pulse Ox O2 Delivery O2 Flow Rate FiO2 06/29/16 12:00 82 06/29/16 11:00 82 06/29/16 10:00 86 06/29/16 09:00 86 06/29/16 08:00 97.8 92 18 141/69 100 06/29/16 08:00 91 06/29/16 07:45 99 Nasal Cannula 2.00 06/29/16 07:32 Nasal Cannula 2.00 06/29/16 07:00 80 06/29/16 06:00 80 06/29/16 05:00 64 06/29/16 04:00 78 06/29/16 03:00 98.0 86 18 111/65 95 06/29/16 03:00 84 06/29/16 02:00 76 06/29/16 01:00 86 06/29/16 00:00 76 06/28/16 23:00 91 06/28/16 23:00 98.7 85 20 123/74 94 06/28/16 22:00 84 06/28/16 21:00 84 06/28/16 20:00 80 06/28/16 19:00 98 Nasal Cannula 2.00 06/28/16 19:00 98.4 83 18 121/80 98 06/28/16 19:00 81 06/28/16 18:05 84 06/28/16 17:00 85 06/28/16 16:00 75 06/28/16 15:01 97.7 69 17 110/67 98 06/28/16 15:00 75 06/28/16 14:01 81 Labs: Laboratory Tests Test 06/29/16 06/29/16 05:33 09:27 Activated Partial 54.8 SEC Thromboplast Time (24.3-30.1) Sodium Level 135 MEQ/L (136-145) Potassium Level 4.1 MEQ/L (3.5-5.1) Chloride Level 95 MEQ/L (98-107) Carbon Dioxide Level 32.3 MEQ/L (21.0-32.0) Anion Gap 8 MEQ/L (5-15) Blood Urea Nitrogen 23 MG/DL (7-18) Creatinine 0.98 MG/DL (0.60-1.30) Estimat Glomerular Filtration 74 ML/MIN (>89) Rate Random Glucose 106 MG/DL (74-106) Calcium Level 9.7 MG/DL (8.5-10.1) Blood Type A POSITIVE A POSITIVE Antibody Screen NEGATIVE Crossmatch Leukocyte-Reduced Red Blood Cells Blood Bank Comment Result Diagram: 06/28/16 0403 06/29/16 0533 Telemetry: NSR (1) CAD (coronary artery disease) Plan: Status post NSTEMI. Severe 3 vessel CAD by cath. on BB, statin , ASA Heparin gtt Stable over the weekend. No further angina. (2) Congestive heart failure (CHF) Plan: EF ~ 40% by echo and cath. Symptomatically improved with good diuresis. Cont same. Consider change to oral Lasix. (3) Hypertension Plan: Normotensive. Cont same. (4) Hyperlipidemia Plan: Fairly good lipid profile with LDL 75. Continue statin. Problem Qualifiers (1) CAD (coronary artery disease): Qualified Code: I25.110 - Coronary artery disease involving [place] coronary artery of [place] heart with unstable angina pectoris (2) Congestive heart failure (CHF): Qualified Code: I50.21 - Acute systolic congestive heart failure (3) Hypertension: Qualified Code: I10 - Essential hypertension (4) Hyperlipidemia: Qualified Code: E78.2 - Mixed hyperlipidemia Shanon Osorio June 29, 2016 14:06
[2016-06-29] MEDS: PRAVASTATIN SOD 40 MG TAB PO SCH (21:10)
[2016-06-30] VITALS (25 sets, daily range): BP systolic 106–133; BP diastolic 59–79; PULSE 68–96; RESP 17–18; TEMP 98–98.5; O2SAT 92–98
[2016-06-30] MEDS: METOPROLOL TARTRATE 25 MG TAB PO SCH ×2 (06:03→11:37)
[2016-06-30] MEDS: FUROSEMIDE 40 MG/4 ML VIAL IV PUSH SCH (08:19)
[2016-06-30] MEDS: ASPIRIN EC 81 MG TABEC PO SCH (08:19)
[2016-06-30] MEDS: PANTOPRAZOLE SOD 40 MG DELAYED RELEASE TAB PO SCH (08:19)
[2016-06-30] MEDS: SODIUM CHLORIDE 0.9% FLUSH 10 ML FLUSH IV FLUSH SCH ×2 (08:19→20:53)
[2016-06-30] MEDS: DOCUSATE SODIUM 100 MG CAP PO SCH ×2 (08:19→20:52)
[2016-06-30] MEDS: POTASSIUM CHLORIDE 20 MEQ CONTROLLED RELEASE TAB PO SCH (08:19)
[2016-06-30] MEDS: POLYETHYLENE GLYCOL 17 GM PKG PO SCH (08:20)
[2016-06-30] MEDS: ENALAPRIL MALEATE 2.5 MG TAB PO SCH (08:20)
[2016-06-30] MEDS ORDERED: HEPARIN SODIUM - IV 10,000 UNITS/10 ML VIAL ONE (08:38)
[2016-06-30] MEDS ORDERED: ceFAZolin 2 GM PREMIX 50 ML ONE (08:39)
[2016-06-30] MEDS ORDERED: VANCOMYCIN HCL 1000 MG VIAL ONE (08:39)
[2016-06-30] MEDS ORDERED: methylPREDNISolone SOD SUCC 125 MG/2 ML VIAL ONE (08:40)
[2016-06-30 09:09] LABS: APTT (PATIENT) 63.2 SEC (24.3-30.1)
--- NOTE | 2016-06-30 11:11 | HHI.PR ---
Subjective Remarks Patient reports he is feeling okay this morning. He denies shortness of breath or chest pain. NPO for CABG today. Objective Vitals Vital Signs Date Time Temp Pulse Resp B/P Pulse Ox O2 Delivery O2 Flow Rate FiO2 06/30/16 07:30 87 06/30/16 07:30 98.2 87 18 130/79 96 06/30/16 07:30 96 Room Air 06/30/16 06:16 81 06/30/16 05:38 82 06/30/16 04:10 98.0 84 17 113/59 92 06/30/16 04:02 76 06/30/16 03:00 68 06/30/16 02:00 74 06/30/16 01:00 96 06/30/16 00:00 76 06/30/16 00:00 98.0 85 18 131/79 94 06/29/16 23:00 91 06/29/16 22:00 80 06/29/16 21:00 80 06/29/16 20:00 88 06/29/16 20:00 98.1 88 18 137/77 95 06/29/16 19:00 95 Room Air 06/29/16 19:00 79 06/29/16 18:00 82 06/29/16 17:00 84 06/29/16 16:00 83 06/29/16 16:00 97.9 82 16 142/87 96 06/29/16 15:00 78 06/29/16 14:00 78 06/29/16 13:00 78 06/29/16 12:00 82 06/29/16 12:00 97.9 83 16 120/69 98 I/O 06/29/16 06/29/16 06/29/16 06/30/16 06/30/16 06/30/16 06:59 14:59 22:59 06:59 14:59 22:59 Intake Total 830 ml 664 ml Output Total 650 ml 800 ml Balance 180 ml -136 ml Intake Oral 600 ml 480 ml IV Total 230 ml 184 ml Output Urine Total 650 ml 800 ml # Bowel Movements 1 0 Result Diagram: 06/28/16 0403 06/29/16 0533 Imaging Last Impressions Chest X-Ray 06/26/16 0600 Signed Impressions: Service Date/Time: Sunday, June 26, 2016 04:38 - CONCLUSION: Decreasing edema but worsening right-sided pneumonia. Danny Lamar MD Lower Extremity Ultrasound 06/26/16 0000 Signed Impressions: Service Date/Time: Sunday, June 26, 2016 18:26 - CONCLUSION: Venous mapping as delineated above. Danny Gonzalez MD Chest CT 06/26/16 0000 Signed Impressions: Service Date/Time: Monday, June 27, 2016 10:12 - CONCLUSION: Patchy right lung airspace disease, small bilateral effusions. Atherosclerosis. Mateo Moseley MD Carotid Artery Ultrasound 06/26/16 0000 Signed Impressions: Service Date/Time: Sunday, June 26, 2016 15:44 - CONCLUSION: 1. No evidence of hemodynamically significant lesion. Dorian Marie MD Objective Remarks GENERAL: Elderly male in no apparent distress. CARDIOVASCULAR: Normal rate and regular rhythm without murmurs, gallops, or rubs. RESPIRATORY: Good respiratory efforts. Breath sounds equal and clear to auscultation bilaterally. GASTROINTESTINAL: Abdomen soft, non-tender, non-distended. Normal active bowel sounds MUSCULOSKELETAL: Extremities without cyanosis, or edema. NEURO: Alert & Oriented x4 to person, place, time, situation. Moves all ext x4 PSYCH: Appropriate mood and affect. A/P Assessment and Plan 1. Hypoxemic Respiratory Failure. Probable pneumonia. 2. NSTEMI 3. Hypertension. 4. Pulmonary edema Plan: 1. Currently on Levaquin 750 mg IV for pneumonia. Monitor patient clinically. At this time, patient is not coughing, is afebrile. Will compare post CABG imaging. 2. Status post cardiac catheterization showing three-vessel disease. Diuresing well with Lasix, continue for now. Monitor creatinine and potassium levels. Cardiology recommends continuing MICK inhibitor, beta vivian and heparin drip. Patient is scheduled for CABG today 3. Continue Lopressor to 25 mg 3 times a day 4. lisinopril held for possible procedure, resumed postprocedure. on Norvasc and pravastatin. 5. Heparin gtt, Iftikhar Beltran MD June 30, 2016 11:11
--- NOTE | 2016-06-30 11:14 | PD.CAR.PN ---
CVT Progress Note Subjective/Hospital Course: 80/ male from [place] here with his as alexander, admitted with NSTEMI , acute CHF / pulm edema / right lower lobe Pneumonia underwent cardiac cath by Dr Wolff, multivessel disease EF 40%. Pt initially admitted to [facility] [place], diuresed and started on antibiotics. Pt is now scheduled for surgery on 06/30 PMH: HTN, HLP 06/29 pt for OR in am no chest pain, or SOB 06/30 OR cancelled and rescheduled for surgery in / 04/02 scheduling no pain Objective: GENERAL: SKIN: Warm and dry. HEAD: Normocephalic. EYES: No scleral icterus. No injection or drainage. NECK: Supple, trachea midline. No JVD or lymphadenopathy. CARDIOVASCULAR: Regular rate and rhythm without murmurs, gallops, or rubs. RESPIRATORY: Breath sounds equal bilaterally. No accessory muscle use. GASTROINTESTINAL: Abdomen soft, non-tender, nondistended. MUSCULOSKELETAL: No cyanosis, or edema. BACK: Nontender without obvious deformity. No CVA tenderness. Vital Signs Date Time Temp Pulse Resp B/P Pulse Ox O2 Delivery O2 Flow Rate FiO2 06/30/16 07:30 87 06/30/16 07:30 98.2 87 18 130/79 96 06/30/16 07:30 96 Room Air 06/30/16 06:16 81 06/30/16 05:38 82 06/30/16 04:10 98.0 84 17 113/59 92 06/30/16 04:02 76 06/30/16 03:00 68 06/30/16 02:00 74 06/30/16 01:00 96 06/30/16 00:00 76 06/30/16 00:00 98.0 85 18 131/79 94 06/29/16 23:00 91 06/29/16 22:00 80 06/29/16 21:00 80 06/29/16 20:00 88 06/29/16 20:00 98.1 88 18 137/77 95 06/29/16 19:00 95 Room Air 06/29/16 19:00 79 06/29/16 18:00 82 06/29/16 17:00 84 06/29/16 16:00 83 06/29/16 16:00 97.9 82 16 142/87 96 06/29/16 15:00 78 06/29/16 14:00 78 06/29/16 13:00 78 06/29/16 12:00 82 06/29/16 12:00 97.9 83 16 120/69 98 Labs: Laboratory Tests Test 06/30/16 08:19 Activated Partial 63.2 SEC Thromboplast Time (24.3-30.1) Result Diagram: 06/28/16 0403 06/29/16 0533 (1) CAD (coronary artery disease) Plan: Status post NSTEMI. Severe 3 vessel CAD by cath. on BB, statin , ASA Heparin gtt . No further angina. for OR in am (2) Congestive heart failure (CHF) Plan: EF ~ 40% by echo and cath. Symptomatically improved with good diuresis. Cont same. oral Lasix. (3) Hypertension Plan: Normotensive. Cont same. (4) Hyperlipidemia Plan: Fairly good lipid profile with LDL 75. Continue statin. Problem Qualifiers (1) CAD (coronary artery disease): Qualified Code: I25.110 - Coronary artery disease involving [place] coronary artery of king [place] heart with unstable angina pectoris (2) Congestive heart failure (CHF): Qualified Code: I50.21 - Acute systolic congestive heart failure (3) Hypertension: Qualified Code: I10 - Essential hypertension (4) Hyperlipidemia: Qualified Code: E78.2 - Mixed hyperlipidemia Shanon Osorio June 30, 2016 11:14
[2016-06-30] MEDS: LEVOFLOXACIN 750 MG PREMIX INJ 150 ML IV SCH (11:38)
[2016-06-30] MEDS: PRAVASTATIN SOD 40 MG TAB PO SCH (20:52)
[2016-07-01] VITALS (16 sets, daily range): BP systolic 83–124; BP diastolic 44–75; PULSE 67–100; RESP 13–18; TEMP 97.3–98.4; O2SAT 89–95
[2016-07-01] MEDS ORDERED: NEOSTIGMINE METHYLSULFATE 10 MG/10 ML VIAL IV PUSH ONE (05:00)
[2016-07-01] MEDS ORDERED: AMINOCAPROIC ACID INJ 250 MG/ML 20 ML VIAL IV ONE (05:00)
[2016-07-01] MEDS ORDERED: PHENYLEPHRINE HCL 10 MG/ML VIAL IV ONE (05:00)
[2016-07-01] MEDS ORDERED: MAGNESIUM SULFATE 1000 MG/2 ML VIAL (PED) IV ONE (05:00)
[2016-07-01] MEDS ORDERED: GLYCOPYRROLATE 0.2 MG/ML VIAL IV ONE (05:00)
[2016-07-01] MEDS ORDERED: ARTIFICIAL TEARS OPTH OINT 3.5 APPLIC/3.5 GM TUBO ONE (05:00)
[2016-07-01] MEDS ORDERED: PROTAMINE SULFATE 250 MG/25 ML VIAL IV ONE (05:00)
[2016-07-01] MEDS ORDERED: HEPARIN SODIUM - SQ 10,000 UNITS/ML VIAL SQ ONE (05:00)
[2016-07-01] MEDS ORDERED: CALCIUM CHLORIDE 10% SOLN 1 GRAM/10 ML SYR IV ONE (05:00)
[2016-07-01] MEDS ORDERED: VECURONIUM BROMIDE 10 MG VIAL IV ONE ×2 (05:00→13:21)
[2016-07-01] MEDS: METOPROLOL TARTRATE 25 MG TAB PO SCH (06:06)
[2016-07-01] MEDS ORDERED: VANCOMYCIN HCL 1000 MG VIAL ONE (06:21)
[2016-07-01] MEDS ORDERED: HEPARIN SODIUM - SQ 10,000 UNITS/ML VIAL ONE (06:21)
[2016-07-01] MEDS ORDERED: ceFAZolin 2 GM PREMIX 50 ML ONE (06:21)
[2016-07-01] MEDS ORDERED: methylPREDNISolone SOD SUCC 125 MG/2 ML VIAL ONE (06:22)
[2016-07-01 06:24] LABS: HEMATOCRIT 38.6 % (39.0-51.0); MEAN CORPUSCULAR HEMOGLOBIN 31.2 PG (27.0-34.0); PLATELET COUNT 241 TH/MM3 (150-450); RED CELL DISTRIBUTION WIDTH 12.4 % (11.6-17.2); REVIEW FLAG FINAL; WHITE BLOOD COUNT 5.3 TH/MM3 (4.0-11.0)
[2016-07-01 06:41] LABS: APTT (PATIENT) 39.3 SEC (24.3-30.1)
[2016-07-01 06:56] LABS: BICARBONATE 31.1 MEQ/L (21.0-32.0)
[2016-07-01] MEDS ORDERED: HEPARIN SODIUM - IV 10,000 UNITS/10 ML VIAL ONE (07:14)
[2016-07-01] MEDS ORDERED: CARDIOPLEGIC IRR 1,000 ML ONE (07:14)
[2016-07-01] MEDS ORDERED: POTASSIUM CHLORIDE 20 MEQ/10 ML VIAL ONE ×2 (07:15)
[2016-07-01] MEDS ORDERED: MANNITOL INJ 50 ML ONE (07:15)
[2016-07-01] MEDS ORDERED: ALBUMIN HUMAN 25% 12.5 GM/50 ML BAGP IV ONE (07:16)
[2016-07-01] MEDS ORDERED: FUROSEMIDE 40 MG/4 ML VIAL IV PUSH SCH (09:00)
[2016-07-01] MEDS ORDERED: LACTATED RINGER'S 1000 ML INJ 500 ML IV PRN (10:50)
[2016-07-01] MEDS ORDERED: DEXTROSE 50% IN WATER 50 ML VIAL(D50) IV PUSH PRN (11:00)
[2016-07-01] MEDS ORDERED: INSULIN REGULAR (IV INFUSION) 100 UNITS in SODIUM CHLORIDE 0.9% INJ 99 ML IV SCH (11:00)
[2016-07-01] MEDS ORDERED: ACETAMINOPHEN 650 MG SUPP RECTAL PRN (11:00)
[2016-07-01] MEDS ORDERED: hydrALAZINE HCL 20 MG/ML VIAL IV PRN (11:00)
[2016-07-01] MEDS ORDERED: POTASSIUM CHLOR 20 MEQ PREMIX 100 ML IV PRN ×3 (11:00)
[2016-07-01] MEDS ORDERED: MAGNESIUM SULFATE INJ 2 GM in SODIUM CHLORIDE 0.9% INJ 100 ML IV PRN ×4 (11:00)
[2016-07-01] MEDS ORDERED: METOPROLOL TARTRATE 5 MG/5 ML VIAL IV PUSH PRN (11:00)
[2016-07-01] MEDS ORDERED: SODIUM CHLORIDE 0.9% FLUSH 10 ML FLUSH IV FLUSH PRN (11:00)
[2016-07-01] MEDS ORDERED: ONDANSETRON HCL 4 MG/2 ML VIAL IV PUSH PRN (11:00)
[2016-07-01] MEDS ORDERED: CALCIUM CHLORIDE 10% 1 GRAM/10 ML VIAL IV PRN (11:00)
[2016-07-01] MEDS ORDERED: CLEVIDIPINE INJ 50 ML IV SCH (11:00)
[2016-07-01] MEDS ORDERED: ACETAMINOPHEN 325 MG TAB PO PRN (11:00)
[2016-07-01] MEDS ORDERED: CALCIUM CHLORIDE INJ 1 GM in SODIUM CHLORIDE 0.9% INJ 100 ML IV PRN (11:00)
--- NOTE | 2016-07-01 11:08 | PD.OP ---
cc: Maye Medley MD; Ludwin Wolff MD Operative Report Date of Surgery: July 01, 2016 Preoperative Diagnosis: (1) Non-STEMI (non-ST elevated myocardial infarction) (2) CAD (coronary artery disease) (3) Congestive heart failure (CHF) Postoperative Diagnosis: same Procedure: CABG x 4 ALLEN to LAD - good SVG to OM2 - fair SVG to OM3 - good SVG to PDA - good EVH KENNETH Anesthesia: Dr. Lundberg Surgeon: Maye Medley Slag Wheeler(s): CHARMAINE Concepcion Operation and Findings: The risks, benefits, complications, treatment options, and expected outcomes were discussed with the patient. The possibilities of reaction to medication, pulmonary aspiration, perforation of viscus, bleeding, recurrent infection, the need for additional procedures, failure to diagnose a condition, and creating a complication requiring transfusion or operation were discussed with the patient. The patient concurred with the proposed plan, giving informed consent. The site of surgery properly noted/marked. The patient was taken to Operating Room, identified as Jw Jackman and the procedure verified as CABG, EVH, KENNETH. A Time Out was held and the above information confirmed. Standard monitoring lines and Aparicio catheter were placed. General anesthesia was induced. The patient was prepped and draped in a sterile fashion. A median sternotomy was performed and electrocautery was used to obtain hemostasis. The left internal mammary artery was procured as a pedicle from the 7th rib to the 1st rib in the usual manner. Simultaneously left greater saphenous vein was procured from the left leg using a minimally invasive endoscopic technique. The vein was prepared for anastomosis and the leg wound was irrigated and closed in 2 layers. The pericardium was opened and a pericardial sling was created using interrupted 0 silk sutures. The patient was heparinized for cardiopulmonary bypass and the distal mammary pedicle was instrumented for anastomosis. The heart was instrumented for cardiopulmonary bypass in the usual manner. Antegrade blood cardioplegia was employed. The patient was placed on cardiopulmonary bypass. An aortic cross-clamp was applied and the heart was arrested using cold blood cardioplegia. Antegrade cardioplegia was administered after he each anastomosis. After adequate arrest, the distal right coronary circulation was investigated and the PDA was opened with a [place] blade and found to be a 1.5 millimeter good target. Saphenous vein was approximated to the PDA artery using a running 7 0 Prolene suture. The graft was measured for length and orientation and the proximal anastomosis was constructed to the ascending aorta using a running 5 0 Prolene suture after creating an aortotomy with a 5 millimeter punch. The 3rd circumflex marginal artery was then opened with a [place] blade and found to be a 2 millimeter good target. Saphenous vein was approximated to the OM3 artery using a running 7 0 Prolene suture. The graft was measured for length and orientation and the proximal anastomosis was constructed to the ascending aorta using a running 5 0 Prolene suture after creating an aortotomy with a 5 millimeter punch. The 2nd circumflex marginal artery was then opened with a [place] blade and found to be a 1 to 1.5 millimeter fair target. Saphenous vein was approximated to the OM2 artery using a running 7 0 Prolene suture. The graft was measured for length and orientation and was suspended from the pericardium. The distal LAD was opened with a [place] blade and found to be a 1.5 millimeter good target. The left internal mammary artery was approximated to the LAD using a running 7 0 Prolene suture. The pedicle was attached to the epicardium using interrupted 5 0 silk suture. The patient was systemically rewarmed and received a hotshot dose of warm blood cardioplegia. The aorta was vented and the proximal anastomosis to the OM2 graft was accomplished using a running 5 0 Prolene suture after creating an aortotomy was a 5 millimeter punch. The cross-clamp was removed and all proximal and distal anastomoses were examined for hemostasis. The patient was weaned from cardiopulmonary bypass. Protamine was given. There was no adverse reaction. Decannulation was carried out without incident. Wound was checked for hemostasis which was obtained using electrocautery. A 36 Romanian mediastinal and 32 Romanian left pleural chest tubes were placed and secured to the skin with 0 silk suture. The sternum was closed with stainless steel wire. The fascia was closed with 1. PDS. The subcutaneous tissue was closed using a running 2-0 Vicryl suture. The skin was closed with 4-0 Monocryl. Sterile dressings were placed. At the end of the operation, all sponge, instruments, and needle counts were correct. The patient was transferred to the CVICU in stable condition. Findings: good distal targets fro the most part, preserved LV function at ~40-45% XC: 65 min CPB: 75 min Drains: mediastinal x 1 pleural x 1 Complications: none Disposition: to CVICU in stable condition Maye Medley MD July 01, 2016 11:08
[2016-07-01] MEDS ORDERED: Post-op Orders (for Pharmacy) MISC OTHER ONE (11:30)
[2016-07-01] MEDS ORDERED: fentaNYL CITRATE 1000 MCG/20 ML VIAL ONE (11:48)
[2016-07-01] MEDS ORDERED: MIDAZOLAM HCL 5 MG/5 ML VIAL ONE (11:48)
--- NOTE | 2016-07-01 12:13 | RADRPT ---
EXAM DATE/TIME: 07/01/2016 11:48 [facility] COMPARISON: CHEST SINGLE AP, June 26, 2016, 4:38. INDICATIONS : Post op open heart. MEDICAL HISTORY : Cardiovascular disease. SURGICAL HISTORY : CABG. ENCOUNTER: Initial ACUITY: 1 day PAIN SCORE: Non-responsive. LOCATION: Bilateral chest FINDINGS: Endotracheal tube is present with tip 60 m above the moise. A nasogastric tube descends to the stoma ch. Thoracostomy tubes are present. Left subclavian sheath and central catheter are present. There is mild atelectasis in the lung bases, left worse than right. Accounting for rotation, cardiac contours are satisfactory. CONCLUSION: Satisfactory postoperative appearance Danny Villarreal MD on July 01, 2016 at 12:10 Board Certified Radiologist. This report was verified electronically.
[2016-07-01] MEDS: ACETAMINOPHEN 1000 MG/100 ML VIAL IV SCH ×2 (12:19→21:50)
[2016-07-01] MEDS ORDERED: RESP: RACEPINEPHRINE 2.25% 0.5 ML NEB NEB PRN (12:30)
--- NOTE | 2016-07-01 12:59 | HHI.PR ---
Subjective Remarks patient back from surgery CABG x 4 on vent- post op-CPAP- 50% Objective Vitals Vital Signs Date Time Temp Pulse Resp B/P Pulse Ox O2 Delivery O2 Flow Rate FiO2 07/01/16 06:39 83 07/01/16 05:15 72 07/01/16 04:51 68 07/01/16 04:15 98.4 85 18 114/75 92 07/01/16 03:02 69 07/01/16 02:10 70 07/01/16 01:05 78 07/01/16 00:00 77 07/01/16 00:00 98.0 82 16 124/74 94 06/30/16 23:00 86 06/30/16 22:00 86 06/30/16 21:31 98 21 06/30/16 21:00 76 06/30/16 20:00 98.1 76 18 133/78 95 06/30/16 20:00 73 06/30/16 19:00 95 Room Air 06/30/16 19:00 83 06/30/16 17:00 80 06/30/16 16:00 77 06/30/16 16:00 98.1 77 18 107/64 97 06/30/16 15:00 86 06/30/16 14:00 78 06/30/16 13:00 78 I/O 06/30/16 06/30/16 06/30/16 07/01/16 07/01/16 07/01/16 07:00 15:00 23:00 07:00 15:00 23:00 Intake Total 664 ml 945 ml 279 ml Output Total 800 ml 625 ml Balance -136 ml 320 ml 279 ml Intake Oral 480 ml 760 ml 120 ml IV Total 184 ml 185 ml 159 ml Output Urine Total 800 ml 625 ml # Voids 2 # Bowel Movements 0 0 1 Result Diagram: 07/01/16 0605 07/01/16 06 Imaging Last Impressions Chest X-Ray 07/01/16 0000 Signed Impressions: Service Date/Time: Friday, July 01, 2016 11:48 - CONCLUSION: Satisfactory postoperative appearance Danny Villarreal MD Lower Extremity Ultrasound 06/26/16 0000 Signed Impressions: Service Date/Time: Sunday, June 26, 2016 18:26 - CONCLUSION: Venous mapping as delineated above. Danny Gonzalez MD Chest CT 06/26/16 0000 Signed Impressions: Service Date/Time: Monday, June 27, 2016 10:12 - CONCLUSION: Patchy right lung airspace disease, small bilateral effusions. Atherosclerosis. Mateo Moseley MD Carotid Artery Ultrasound 06/26/16 0000 Signed Impressions: Service Date/Time: Sunday, June 26, 2016 15:44 - CONCLUSION: 1. No evidence of hemodynamically significant lesion. Dorian Marie MD Objective Remarks patient on vent- CPAP anicteric ET in place regular rhythm Prevana dressing in place- midsternum, chest tubes in place abdomen soft sprague in place extremities no edema Procedures 07/01- CABG 06/25 - cardiac cath A/P Assessment and Plan 80 years old male CAD, NSTEMI , severe 3VDS/P CABG x 4- 07/01 Hypertension -CV surgery ff Hypoxemic Respiratory Failure. due to Pulmonary Edema Cardiomyopathy- EF 40%- came in with acute CHF- - post op vent- extubation soon - ff BMP- -restart cardiac meds- BB, MICK, diuretics per CVS change to Vascular surgery service Mari Oropeza MD July 01, 2016 12:59
[2016-07-01] MEDS ORDERED: POTASSIUM CHLORIDE 20 MEQ CONTROLLED RELEASE TAB PO PRN ×2 (13:00)
[2016-07-01] MEDS ORDERED: DOBUTamine PREMIX DRIP 250 ML ONE (13:09)
[2016-07-01] MEDS ORDERED: DOPamine INJ PREMIX 500 ML ONE (13:12)
[2016-07-01] MEDS ORDERED: LACTATED RINGER'S 1000 ML INJ 2,000 ML IV ONE (13:21)
[2016-07-01] MEDS ORDERED: SODIUM CHLORID 0.9% 500 ML INJ 1,000 ML IV ONE (13:22)
[2016-07-01] MEDS ORDERED: DOPamine 800 MG/D5W PREMIX 500 ML IV SCH (13:45)
[2016-07-01] MEDS: RESP: ALBUTEROL 2.5 MG/IPRATROPIUM 0.5 MG NEB (SCH) NEB ×2 (15:40→22:26)
[2016-07-01] MEDS: SODIUM CHLORIDE 0.9% FLUSH 10 ML FLUSH IV FLUSH SCH (16:10)
[2016-07-01] MEDS: METOCLOPRAMIDE HCL 10 MG/2 ML VIAL IV PUSH SCH ×2 (17:36→21:50)
[2016-07-01] MEDS: DOCUSATE SODIUM 100 MG CAP PO SCH (21:00)
[2016-07-01] MEDS: PRAVASTATIN SOD 40 MG TAB PO SCH (21:50)
[2016-07-01] MEDS: AMIODARONE 200 MG TAB PO SCH (21:50)
[2016-07-02] VITALS (22 sets, daily range): BP systolic 93–153; BP diastolic 50–80; PULSE 86–106; RESP 16–22; TEMP 97.8–98.6; O2SAT 90–99
[2016-07-02] MEDS: ACETAMINOPHEN 1000 MG/100 ML VIAL IV SCH ×2 (01:00→07:00)
[2016-07-02] MEDS: RESP: ALBUTEROL 2.5 MG/IPRATROPIUM 0.5 MG NEB (SCH) NEB ×6 (04:48→19:48)
--- NOTE | 2016-07-02 04:59 | RADRPT ---
EXAM DATE/TIME: 07/02/2016 03:24 [facility] COMPARISON: CHEST SINGLE AP, July 01, 2016, 11:48. INDICATIONS : Shortness of breath, possible pulmonary disease. MEDICAL HISTORY : Cardiovascular disease. SURGICAL HISTORY : CABG. ENCOUNTER: Subsequent ACUITY: 2 days PAIN SCORE: 7/10 LOCATION: Bilateral chest FINDINGS: The cardiac silhouette is enlarged in transverse diameter. A left chest tube is in place. There is no evidence of pneumothorax. The right lung is free of acute parenchymal opacity. A left sided subclavi an vein catheter is in place without pneumothorax with its tip in the superior vena cava. There is calderón bsegmental atelectasis in the left base. CONCLUSION: 1. Left basilar atelectasis. There has been no significant change when compared to the prior exam. 2. There is no evidence of pneumothorax. Dorian Marie MD on July 02, 2016 at 4:57 Board Certified Radiologist. This report was verified electronically.
[2016-07-02 05:04] LABS: HEMATOCRIT 33.1 % (39.0-51.0); MEAN CELL VOLUME 92.7 FL (80.0-100.0); MEAN CORPUSCULAR HEMOGLOBIN 30.8 PG (27.0-34.0); MEAN CORPUSCULAR HGB CONC 33.2 % (32.0-36.0); PLATELET COUNT 196 TH/MM3 (150-450); RED BLOOD COUNT 3.57 MIL/MM3 (4.50-5.90); RED CELL DISTRIBUTION WIDTH 12.3 % (11.6-17.2); REVIEW FLAG FINAL; WHITE BLOOD COUNT 14.9 TH/MM3 (4.0-11.0)
[2016-07-02 05:12] LABS: APTT (PATIENT) 30.7 SEC (24.3-30.1)
[2016-07-02 05:22] LABS: BICARBONATE 27.7 MEQ/L (21.0-32.0); MAGNESIUM 2.5 MG/DL (1.5-2.5); POTASSIUM 4.7 MEQ/L (3.5-5.1)
--- NOTE | 2016-07-02 07:13 | PD.CAR.PN ---
CVT Progress Note Subjective/Hospital Course: 80/ male from [place] here with his as alexander, admitted with NSTEMI , acute CHF / pulm edema / right lower lobe Pneumonia underwent cardiac cath by Dr Wolff, multivessel disease EF 40%. [place] [facility] [place]ed and started on antibiotics. Pt is now scheduled for surgery on 06/30 PMH: HTN, HLP 06/29 pt for OR in am no chest pain, or SOB 06/30 OR cancelled and rescheduled for surgery in / 04/02 scheduling no pain 07/01 Procedure: CABG x 4 ALLEN to LAD - good SVG to OM2 - fair SVG to OM3 - good SVG to PDA - good 07/02 Doing well Transfer telemetry Maintain CT Objective: Vital Signs Date Time Temp Pulse Resp B/P Pulse Ox O2 Delivery O2 Flow Rate FiO2 07/02/16 04:00 97.8 100 19 138/80 92 153/76 07/02/16 00:00 98.0 97 16 93/53 96 112/50 07/01/16 23:00 75 07/01/16 20:00 98.2 92 16 94/70 94 102/70 07/01/16 19:00 95 Nasal Cannula 4.00 07/01/16 16:00 98.3 100 16 98/57 92 107/59 07/01/16 15:30 95 Nasal Cannula 4 07/01/16 15:30 95 Nasal Cannula 4.00 07/01/16 15:00 40 07/01/16 15:00 94 07/01/16 14:00 97.3 07/01/16 12:49 13 07/01/16 12:45 50 07/01/16 12:00 97.3 76 15 100/47 92 07/01/16 12:00 60 07/01/16 11:40 89 Mechanical Ventilator 50 07/01/16 11:40 50 07/01/16 11:40 67 07/01/16 11:40 94 50 07/01/16 11:40 98.1 76 13 83/56 89 102/44 Labs: Laboratory Tests Test 07/02/16 04:25 White Blood Count 14.9 TH/MM3 (4.0-11.0) Red Blood Count 3.57 MIL/MM3 (4.50-5.90) Hemoglobin 11.0 GM/DL (13.0-17.0) Hematocrit 33.1 % (39.0-51.0) Mean Corpuscular Volume 92.7 FL (80.0-100.0) Mean Corpuscular Hemoglobin 30.8 PG (27.0-34.0) Mean Corpuscular Hemoglobin 33.2 % Concent (32.0-36.0) Red Cell Distribution Width 12.3 % (11.6-17.2) Platelet Count 196 TH/MM3 (150-450) Mean Platelet Volume 8.6 FL (7.0-11.0) Activated Partial 30.7 SEC Thromboplast Time (24.3-30.1) Sodium Level 139 MEQ/L (136-145) Potassium Level 4.7 MEQ/L (3.5-5.1) Chloride Level 106 MEQ/L (98-107) Carbon Dioxide Level 27.7 MEQ/L (21.0-32.0) Anion Gap 5 MEQ/L (5-15) Blood Urea Nitrogen 20 MG/DL (7-18) Creatinine 0.84 MG/DL (0.60-1.30) Estimat Glomerular Filtration 88 ML/MIN (>89) Rate Random Glucose 127 MG/DL (74-106) Calcium Level 8.2 MG/DL (8.5-10.1) Magnesium Level 2.5 MG/DL (1.5-2.5) Result Diagram: 07/02/1642407/02/16424 (1) CAD (coronary artery disease) Plan: Status post NSTEMI. Severe 3 vessel CAD by cath. on BB, statin , ASA Heparin gtt . No further angina. for OR in am (2) Congestive heart failure (CHF) Plan: EF ~ 40% by echo and cath. Symptomatically improved with good diuresis. Cont same. oral Lasix. (3) Hypertension Plan: Normotensive. Cont same. (4) Hyperlipidemia Plan: Fairly good lipid profile with LDL 75. Continue statin. Problem Qualifiers (1) CAD (coronary artery disease): Qualified Code: I25.110 - Coronary artery disease involving [place] coronary artery of koi heart with unstable angina pectoris (2) Congestive heart failure (CHF): Qualified Code: I50.21 - Acute systolic congestive heart failure (3) Hypertension: Qualified Code: I10 - Essential hypertension (4) Hyperlipidemia: Qualified Code: E78.2 - Mixed hyperlipidemia Eric Rich MD July 02, 2016 07:13
[2016-07-02] MEDS ORDERED: DEXTROSE 50% IN WATER 50 ML VIAL(D50) IV PRN (07:15)
[2016-07-02] MEDS ORDERED: GLUCAGON 1 MG/ML VIAL OTHER PRN (07:15)
[2016-07-02] MEDS ORDERED: SOD PHOSPHATE/SOD BIPHOSPHATE (ADULT) ENEMA 133ML RECTAL PRN (07:15)
[2016-07-02] MEDS ORDERED: BISACODYL 10 MG SUPP RECTAL PRN (07:15)
[2016-07-02] MEDS: DOCUSATE SODIUM 100 MG CAP PO SCH ×4 (09:00→21:34)
[2016-07-02] MEDS: SODIUM CHLORIDE 0.9% FLUSH 10 ML FLUSH IV FLUSH SCH ×2 (09:00→21:33)
[2016-07-02] MEDS: INSULIN ASPART SUPPLEMENTAL SCALE SQ SCH ×4 (10:00→21:35)
[2016-07-02] MEDS: ASPIRIN EC 81 MG TABEC PO SCH ×2 (10:29→10:38)
[2016-07-02] MEDS: POTASSIUM CHLORIDE 20 MEQ CONTROLLED RELEASE TAB PO SCH ×2 (10:29→10:38)
[2016-07-02] MEDS: MAGNESIUM HYDROXIDE SUSP 30 ML CUP PO SCH (10:29)
[2016-07-02] MEDS: METOCLOPRAMIDE HCL 10 MG/2 ML VIAL IV PUSH SCH ×4 (10:29→21:33)
[2016-07-02] MEDS: METOPROLOL TARTRATE 25 MG TAB PO SCH ×2 (10:30→21:33)
[2016-07-02] MEDS: AMIODARONE 200 MG TAB PO SCH ×2 (10:30→21:34)
[2016-07-02] MEDS: PANTOPRAZOLE SOD 40 MG DELAYED RELEASE TAB PO SCH ×2 (10:30→10:38)
[2016-07-02] MEDS: POLYETHYLENE GLYCOL 17 GM PKG PO SCH ×2 (10:30→10:38)
[2016-07-02] MEDS: MULTIVITAMINS/MINERALS THERAPEUTIC TAB PO SCH (10:38)
--- NOTE | 2016-07-02 18:26 | EKG ---
Date Performed: 07/02/2016 Time Performed: 05:15:24 PTAGE: 80 years EKG: Sinus tachycardia. rSr'(V1) - probable normal variant Poor R wave progression - probable no rmal variant Low QRS voltages in precordial leads Borderline ECG Compared to prior tracing no signifi cant change PREVIOUS TRACING : 06/25/2016 01.17 DOCTOR: Dorian Collazo Interpretating Date/Time 07/02/2016 18:24:01
[2016-07-02] MEDS: oxyCODONE/ACETAMINOPHEN 5 MG/325 MG TAB PO PRN (21:34)
[2016-07-02] MEDS: PRAVASTATIN SOD 40 MG TAB PO SCH (21:34)
[2016-07-02] MEDS: SENNOSIDES 8.6 MG TAB PO SCH (21:34)
[2016-07-03] VITALS (31 sets, daily range): BP systolic 127–152; BP diastolic 67–89; PULSE 88–106; RESP 18–24; TEMP 97.7–98.3; O2SAT 90–100
[2016-07-03] MEDS: INSULIN ASPART SUPPLEMENTAL SCALE SQ SCH ×6 (02:00→22:33)
[2016-07-03 06:21] LABS: AUTOMATED NEUTROPHIL # 13.2 TH/MM3 (1.8-7.7); BASOPHIL % 0.2 % (0.0-2.0); EOSINOPHIL % 0.1 % (0.0-4.0); HEMATOCRIT 31.1 % (39.0-51.0); HEMO FLAGS DIFF FINAL; LYMPH % 7.3 % (9.0-44.0); LYMPHOCYTE # 1.1 TH/MM3 (1.0-4.8); MEAN CELL VOLUME 93.5 FL (80.0-100.0); MEAN CORPUSCULAR HEMOGLOBIN 30.6 PG (27.0-34.0); MEAN CORPUSCULAR HGB CONC 32.8 % (32.0-36.0); MONO % 8.8 % (0.0-8.0); NEUT % 83.6 % (16.0-70.0); PLATELET COUNT 188 TH/MM3 (150-450); RED BLOOD COUNT 3.33 MIL/MM3 (4.50-5.90); RED CELL DISTRIBUTION WIDTH 12.4 % (11.6-17.2); WHITE BLOOD COUNT 15.7 TH/MM3 (4.0-11.0)
[2016-07-03] MEDS: METOCLOPRAMIDE HCL 10 MG/2 ML VIAL IV PUSH SCH ×4 (06:22→22:34)
[2016-07-03 06:33] LABS: APTT (PATIENT) 33.6 SEC (24.3-30.1)
[2016-07-03 07:01] LABS: BICARBONATE 30.5 MEQ/L (21.0-32.0); MAGNESIUM 2.7 MG/DL (1.5-2.5)
[2016-07-03] MEDS: RESP: ALBUTEROL 2.5 MG/IPRATROPIUM 0.5 MG NEB (SCH) NEB ×3 (07:36→18:55)
[2016-07-03] MEDS: METOPROLOL TARTRATE 25 MG TAB PO SCH ×2 (08:02→22:34)
[2016-07-03] MEDS: ASPIRIN EC 81 MG TABEC PO SCH (08:02)
[2016-07-03] MEDS: MULTIVITAMINS/MINERALS THERAPEUTIC TAB PO SCH (08:02)
[2016-07-03] MEDS: PANTOPRAZOLE SOD 40 MG DELAYED RELEASE TAB PO SCH (08:03)
[2016-07-03] MEDS: DOCUSATE SODIUM 100 MG CAP PO SCH ×3 (08:03→22:34)
[2016-07-03] MEDS: AMIODARONE 200 MG TAB PO SCH ×2 (08:03→22:33)
[2016-07-03] MEDS: POTASSIUM CHLORIDE 20 MEQ CONTROLLED RELEASE TAB PO SCH ×2 (08:03→08:06)
[2016-07-03] MEDS: MAGNESIUM HYDROXIDE SUSP 30 ML CUP PO SCH (08:05)
[2016-07-03] MEDS: SODIUM CHLORIDE 0.9% FLUSH 10 ML FLUSH IV FLUSH SCH ×2 (08:05→22:35)
[2016-07-03] MEDS: POLYETHYLENE GLYCOL 17 GM PKG PO SCH ×2 (09:00)
--- NOTE | 2016-07-03 13:40 | PD.CAR.PN ---
CVT Progress Note Subjective/Hospital Course: 80/ male from [place] here with his as alexander, admitted with NSTEMI , acute CHF / pulm edema / right lower lobe Pneumonia underwent cardiac cath by Dr Wolff, multivessel disease EF 40%. [place] [facility] [place] and started on antibiotics. Pt is now scheduled for surgery on 06/30 PMH: HTN, HLP 06/29 pt for OR in am no chest pain, or SOB 06/30 OR cancelled and rescheduled for surgery in / 04/02 scheduling no pain 07/01 Procedure: CABG x 4 ALLEN to LAD - good SVG to OM2 - fair SVG to OM3 - good SVG to PDA - good 07/02 Doing well Transfer telemetry Maintain CT 07/[address] drainage. Maintain to suction Ambulate Objective: Vital Signs Date Time Temp Pulse Resp B/P Pulse Ox O2 Delivery O2 Flow Rate FiO2 07/03/16 11:21 94 Nasal Cannula 3.00 07/03/16 11:21 97.8 93 18 130/67 94 07/03/16 11:01 94 07/03/16 10:00 88 07/03/16 09:01 92 07/03/16 08:01 92 Nasal Cannula 3.00 07/03/16 08:01 98.3 102 18 137/87 92 07/03/16 08:00 102 07/03/16 07:36 93 Nasal Cannula 3.00 07/03/16 07:01 89 07/03/16 06:00 90 07/03/16 05:00 92 07/03/16 04:00 97.8 98 20 142/82 92 07/03/16 04:00 97 07/03/16 04:00 92 Nasal Cannula 3.00 07/03/16 03:00 95 07/03/16 02:00 89 07/03/16 01:00 96 07/03/16 00:00 92 Nasal Cannula 3.00 07/03/16 00:00 98 07/03/16 00:00 98.1 95 20 127/69 92 07/02/16 23:00 93 07/02/16 22:55 18 07/02/16 22:00 106 07/02/16 21:00 100 07/02/16 20:00 98.1 103 22 129/70 90 Arterial Line 07/02/16 20:00 105 07/02/16 20:00 92 Nasal Cannula 3.00 07/02/16 19:50 Nasal Cannula 2.50 07/02/16 19:00 92 07/02/16 18:01 98 07/02/16 17:00 96 07/02/16 16:00 96 07/02/16 15:29 98.1 98 18 138/75 98 07/02/16 15:01 92 07/02/16 14:01 94 07/02/16 13:43 95 Nasal Cannula 3.00 Labs: Laboratory Tests Test 07/03/16 05:45 White Blood Count 15.7 TH/MM3 (4.0-11.0) Red Blood Count 3.33 MIL/MM3 (4.50-5.90) Hemoglobin 10.2 GM/DL (13.0-17.0) Hematocrit 31.1 % (39.0-51.0) Mean Corpuscular Volume 93.5 FL (80.0-100.0) Mean Corpuscular Hemoglobin 30.6 PG (27.0-34.0) Mean Corpuscular Hemoglobin 32.8 % Concent (32.0-36.0) Red Cell Distribution Width 12.4 % (11.6-17.2) Platelet Count 188 TH/MM3 (150-450) Mean Platelet Volume 9.0 FL (7.0-11.0) Neutrophils (%) (Auto) 83.6 % (16.0-70.0) Lymphocytes (%) (Auto) 7.3 % (9.0-44.0) Monocytes (%) (Auto) 8.8 % (0.0-8.0) Eosinophils (%) (Auto) 0.1 % (0.0-4.0) Basophils (%) (Auto) 0.2 % (0.0-2.0) Neutrophils # (Auto) 13.2 TH/MM3 (1.8-7.7) Lymphocytes # (Auto) 1.1 TH/MM3 (1.0-4.8) Monocytes # (Auto) 1.4 TH/MM3 (0-0.9) Eosinophils # (Auto) 0.0 TH/MM3 (0-0.4) Basophils # (Auto) 0.0 TH/MM3 (0-0.2) CBC Comment DIFF FINAL Differential Comment Activated Partial 33.6 SEC Thromboplast Time (24.3-30.1) Sodium Level 135 MEQ/L (136-145) Potassium Level 5.0 MEQ/L (3.5-5.1) Chloride Level 101 MEQ/L (98-107) Carbon Dioxide Level 30.5 MEQ/L (21.0-32.0) Anion Gap 4 MEQ/L (5-15) Blood Urea Nitrogen 28 MG/DL (7-18) Creatinine 1.00 MG/DL (0.60-1.30) Estimat Glomerular Filtration 72 ML/MIN (>89) Rate Random Glucose 118 MG/DL (74-106) Calcium Level 8.6 MG/DL (8.5-10.1) Magnesium Level 2.7 MG/DL (1.5-2.5) Result Diagram: 07/03/1654407/03/16544 (1) CAD (coronary artery disease) Plan: Status post NSTEMI. Severe 3 vessel CAD by cath. on BB, statin , ASA Heparin gtt . No further angina. for OR in am (2) Congestive heart failure (CHF) Plan: EF ~ 40% by echo and cath. Symptomatically improved with good diuresis. Cont same. oral Lasix. (3) Hypertension Plan: Normotensive. Cont same. (4) Hyperlipidemia Plan: Fairly good lipid profile with LDL 75. Continue statin. Problem Qualifiers (1) CAD (coronary artery disease): Qualified Code: I25.110 - Coronary artery disease involving [place] coronary artery of [place] heart with unstable angina pectoris (2) Congestive heart failure (CHF): Qualified Code: I50.21 - Acute systolic congestive heart failure (3) Hypertension: Qualified Code: I10 - Essential hypertension (4) Hyperlipidemia: Qualified Code: E78.2 - Mixed hyperlipidemia Eric Rich MD July 03, 2016 13:40
[2016-07-03] MEDS ORDERED: METOPROLOL TARTRATE 25 MG TAB PO ONE (15:45)
[2016-07-03] MEDS: PRAVASTATIN SOD 40 MG TAB PO SCH (22:33)
[2016-07-03] MEDS: oxyCODONE/ACETAMINOPHEN 5 MG/325 MG TAB PO PRN (22:34)
[2016-07-03] MEDS: SENNOSIDES 8.6 MG TAB PO SCH (22:35)
[2016-07-04] VITALS (27 sets, daily range): BP systolic 111–145; BP diastolic 70–77; PULSE 75–96; RESP 18–26; TEMP 97.3–98.6; O2SAT 94–97
[2016-07-04] MEDS: RESP: ALBUTEROL 2.5 MG/IPRATROPIUM 0.5 MG NEB (PRN) NEB ×3 (00:18→12:48)
[2016-07-04] MEDS: oxyCODONE/ACETAMINOPHEN 5 MG/325 MG TAB PO PRN ×2 (03:33→09:55)
[2016-07-04 05:20] LABS: HEMATOCRIT 29.5 % (39.0-51.0); MEAN CELL VOLUME 92.6 FL (80.0-100.0); MEAN CORPUSCULAR HEMOGLOBIN 31.7 PG (27.0-34.0); MEAN CORPUSCULAR HGB CONC 34.3 % (32.0-36.0); PLATELET COUNT 212 TH/MM3 (150-450); RED BLOOD COUNT 3.18 MIL/MM3 (4.50-5.90); RED CELL DISTRIBUTION WIDTH 12.7 % (11.6-17.2); REVIEW FLAG FINAL; WHITE BLOOD COUNT 12.6 TH/MM3 (4.0-11.0)
[2016-07-04 05:27] LABS: APTT (PATIENT) 31.3 SEC (24.3-30.1)
[2016-07-04] MEDS: METOCLOPRAMIDE HCL 10 MG/2 ML VIAL IV PUSH SCH ×4 (06:28→22:17)
[2016-07-04] MEDS: INSULIN ASPART SUPPLEMENTAL SCALE SQ SCH ×4 (06:28→21:00)
[2016-07-04] MEDS: SODIUM CHLORIDE 0.9% FLUSH 10 ML FLUSH IV FLUSH SCH ×2 (09:00→22:17)
--- NOTE | 2016-07-04 09:27 | PD.CAR.PN ---
CVT Progress Note Subjective/Hospital Course: 80/ male from [place] here with his as alexander, admitted with NSTEMI , acute CHF / pulm edema / right lower lobe Pneumonia underwent cardiac cath by Dr Wolff, multivessel disease EF 40%. Pt initially admitted to [facility], diuresed and started on antibiotics. Pt is now scheduled for surgery on 06/30 PMH: HTN, HLP 06/29 pt for OR in am no chest pain, or SOB 06/30 OR cancelled and rescheduled for surgery in / 04/02 scheduling no pain 07/01 Procedure: CABG x 4 ALLEN to LAD - good SVG to OM2 - fair SVG to OM3 - good SVG to PDA - good 07/02 Doing well Transfer telemetry Maintain CT 07/[address] drainage. Maintain to suction Ambulate 07/04 CT continues to drain Re-evaluate for removal tomorrow Objective: Vital Signs Date Time Temp Pulse Resp B/P Pulse Ox O2 Delivery O2 Flow Rate FiO2 07/04/16 08:16 94 Nasal Cannula 2.00 07/04/16 07:00 94 Nasal Cannula 2.00 07/04/16 07:00 88 07/04/16 07:00 97.3 86 18 125/73 94 07/04/16 06:00 80 07/04/16 05:00 82 07/04/16 04:00 84 07/04/16 03:00 85 07/04/16 03:00 97.6 91 22 127/77 96 07/04/16 03:00 96 Nasal Cannula 3.00 07/04/16 02:00 89 07/04/16 01:00 91 07/04/16 00:00 96 07/03/16 23:40 93 Nasal Cannula 3.00 07/03/16 23:40 97.7 96 24 147/79 93 07/03/16 23:00 92 07/03/16 22:00 90 07/03/16 21:00 96 07/03/16 20:00 100 07/03/16 19:30 93 Nasal Cannula 2.00 07/03/16 19:30 98.1 98 22 133/75 93 07/03/16 19:00 94 07/03/16 18:01 106 07/03/16 17:18 100 Nasal Cannula 3.00 07/03/16 17:01 94 07/03/16 16:00 94 07/03/16 15:30 98.1 98 20 152/89 90 07/03/16 15:30 90 Nasal Cannula 3.00 07/03/16 15:01 93 07/03/16 14:01 92 07/03/16 13:00 94 07/03/16 12:00 94 07/03/16 11:21 94 Nasal Cannula 3.00 07/03/16 11:21 97.8 93 18 130/67 94 07/03/16 11:01 94 07/03/16 10:00 88 Labs: Laboratory Tests Test 07/04/16 05:00 White Blood Count 12.6 TH/MM3 (4.0-11.0) Red Blood Count 3.18 MIL/MM3 (4.50-5.90) Hemoglobin 10.1 GM/DL (13.0-17.0) Hematocrit 29.5 % (39.0-51.0) Mean Corpuscular Volume 92.6 FL (80.0-100.0) Mean Corpuscular Hemoglobin 31.7 PG (27.0-34.0) Mean Corpuscular Hemoglobin 34.3 % Concent (32.0-36.0) Red Cell Distribution Width 12.7 % (11.6-17.2) Platelet Count 212 TH/MM3 (150-450) Mean Platelet Volume 8.8 FL (7.0-11.0) Activated Partial 31.3 SEC Thromboplast Time (24.3-30.1) Result Diagram: 07/04/16 0500 07/03/16 0545 (1) CAD (coronary artery disease) Plan: Status post NSTEMI. Severe 3 vessel CAD by cath. on BB, statin , ASA Heparin gtt . No further angina. for OR in am (2) Congestive heart failure (CHF) Plan: EF ~ 40% by echo and cath. Symptomatically improved with good diuresis. Cont same. oral Lasix. (3) Hypertension Plan: Normotensive. Cont same. (4) Hyperlipidemia Plan: Fairly good lipid profile with LDL 75. Continue statin. Problem Qualifiers (1) CAD (coronary artery disease): Qualified Code: I25.110 - Coronary artery disease involving [place] coronary artery of [place] heart with unstable angina pectoris (2) Congestive heart failure (CHF): Qualified Code: I50.21 - Acute systolic congestive heart failure (3) Hypertension: Qualified Code: I10 - Essential hypertension (4) Hyperlipidemia: Qualified Code: E78.2 - Mixed hyperlipidemia Eric Rich MD July 04, 2016 09:27
[2016-07-04] MEDS: POLYETHYLENE GLYCOL 17 GM PKG PO SCH (09:54)
[2016-07-04] MEDS: DOCUSATE SODIUM 100 MG CAP PO SCH ×2 (09:54→21:00)
[2016-07-04] MEDS: MAGNESIUM HYDROXIDE SUSP 30 ML CUP PO SCH (09:54)
[2016-07-04] MEDS: MULTIVITAMINS/MINERALS THERAPEUTIC TAB PO SCH (09:55)
[2016-07-04] MEDS: POTASSIUM CHLORIDE 20 MEQ CONTROLLED RELEASE TAB PO SCH (09:55)
[2016-07-04] MEDS: ASPIRIN EC 81 MG TABEC PO SCH (09:55)
[2016-07-04] MEDS: AMIODARONE 200 MG TAB PO SCH ×2 (09:55→22:16)
[2016-07-04] MEDS: METOPROLOL TARTRATE 25 MG TAB PO SCH ×2 (09:55→22:16)
[2016-07-04] MEDS: PANTOPRAZOLE SOD 40 MG DELAYED RELEASE TAB PO SCH (09:55)
[2016-07-04] MEDS ORDERED: BISACODYL 10 MG SUPP RECTAL PRN (11:00)
[2016-07-04] MEDS: SENNOSIDES 8.6 MG TAB PO SCH (21:00)
[2016-07-04] MEDS: PRAVASTATIN SOD 40 MG TAB PO SCH (22:16)
[2016-07-05] VITALS (24 sets, daily range): BP systolic 113–152; BP diastolic 63–82; PULSE 70–84; RESP 18–24; TEMP 97.3–98.9; O2SAT 93–97
[2016-07-05] MEDS: INSULIN ASPART SUPPLEMENTAL SCALE SQ SCH ×3 (05:19→21:00)
[2016-07-05 05:49] LABS: APTT (PATIENT) 30.6 SEC (24.3-30.1)
[2016-07-05] MEDS: METOCLOPRAMIDE HCL 10 MG/2 ML VIAL IV PUSH SCH ×4 (06:21→21:14)
--- NOTE | 2016-07-05 08:57 | PD.CAR.PN ---
CVT Progress Note Subjective/Hospital Course: 80/ male from [place] here with his as alexander, admitted with NSTEMI , acute CHF / pulm edema / right lower lobe Pneumonia underwent cardiac cath by Dr Wolff, multivessel disease EF 40%. Pt initially admitted to [facility] [place], diuresed and started on antibiotics. Pt is now scheduled for surgery on 06/30 PMH: HTN, HLP 06/29 pt for OR in am no chest pain, or SOB 06/30 OR cancelled and rescheduled for surgery in am / 04/02 scheduling no pain 07/01 Procedure: CABG x 4 ALLEN to LAD - good SVG to OM2 - fair SVG to OM3 - good SVG to PDA - good 07/02 Doing well Transfer telemetry Maintain CT 07/[address] drainage. Maintain to suction Ambulate 07/04 CT continues to drain Re-evaluate for removal tomorrow 07/05 D/C CT Discharge planning Objective: Vital Signs Date Time Temp Pulse Resp B/P Pulse Ox O2 Delivery O2 Flow Rate FiO2 07/05/16 07:23 80 07/05/16 07:23 97.3 80 18 152/82 96 07/05/16 07:23 96 Nasal Cannula 2.00 07/05/16 06:15 76 07/05/16 05:06 75 07/05/16 04:00 75 07/05/16 03:20 95 Nasal Cannula 2.00 07/05/16 03:20 73 07/05/16 03:20 98.3 74 22 113/70 95 07/05/16 02:10 79 07/05/16 00:27 79 07/04/16 23:15 97 Nasal Cannula 2.00 07/04/16 23:15 98.6 83 26 145/73 97 07/04/16 23:05 80 07/04/16 22:00 80 07/04/16 21:26 88 07/04/16 21:16 96 Nasal Cannula 2.00 07/04/16 20:19 98.1 81 26 117/74 97 07/04/16 20:19 79 07/04/16 20:19 97 Nasal Cannula 2.00 07/04/16 19:24 81 07/04/16 18:00 84 07/04/16 17:00 82 07/04/16 16:00 78 07/04/16 15:00 97.6 81 18 124/72 97 07/04/16 15:00 76 07/04/16 15:00 94 Nasal Cannula 2.00 07/04/16 14:00 76 07/04/16 13:00 76 07/04/16 12:08 75 07/04/16 11:00 94 Nasal Cannula 2.00 07/04/16 11:00 97.6 78 18 111/70 94 07/04/16 11:00 78 07/04/16 10:00 88 07/04/16 09:00 94 Labs: Laboratory Tests Test 07/05/16 04:52 Activated Partial 30.6 SEC Thromboplast Time (24.3-30.1) Result Diagram: 07/04/16 0500 07/03/16 0545 (1) CAD (coronary artery disease) Plan: Status post NSTEMI. Severe 3 vessel CAD by cath. on BB, statin , ASA Heparin gtt . No further angina. for OR in am (2) Congestive heart failure (CHF) Plan: EF ~ 40% by echo and cath. Symptomatically improved with good diuresis. Cont same. oral Lasix. (3) Hypertension Plan: Normotensive. Cont same. (4) Hyperlipidemia Plan: Fairly good lipid profile with LDL 75. Continue statin. Problem Qualifiers (1) CAD (coronary artery disease): Qualified Code: I25.110 - Coronary artery disease involving [place] coronary artery of [place] heart with unstable angina pectoris (2) Congestive heart failure (CHF): Qualified Code: I50.21 - Acute systolic congestive heart failure (3) Hypertension: Qualified Code: I10 - Essential hypertension (4) Hyperlipidemia: Qualified Code: E78.2 - Mixed hyperlipidemia Eric Rich MD July 05, 2016 08:57
[2016-07-05] MEDS: MAGNESIUM HYDROXIDE SUSP 30 ML CUP PO SCH (09:00)
[2016-07-05] MEDS: POTASSIUM CHLORIDE 20 MEQ CONTROLLED RELEASE TAB PO SCH (09:00)
[2016-07-05] MEDS: POLYETHYLENE GLYCOL 17 GM PKG PO SCH (09:00)
[2016-07-05] MEDS: SODIUM CHLORIDE 0.9% FLUSH 10 ML FLUSH IV FLUSH SCH ×2 (09:40→21:17)
[2016-07-05] MEDS: PANTOPRAZOLE SOD 40 MG DELAYED RELEASE TAB PO SCH (09:41)
[2016-07-05] MEDS: DOCUSATE SODIUM 100 MG CAP PO SCH ×2 (09:41→21:11)
[2016-07-05] MEDS: METOPROLOL TARTRATE 25 MG TAB PO SCH ×2 (09:41→21:12)
[2016-07-05] MEDS: AMIODARONE 200 MG TAB PO SCH ×2 (09:41→21:11)
[2016-07-05] MEDS: MULTIVITAMINS/MINERALS THERAPEUTIC TAB PO SCH (09:41)
[2016-07-05] MEDS: ASPIRIN EC 81 MG TABEC PO SCH (09:42)
[2016-07-05] MEDS: SENNOSIDES 8.6 MG TAB PO SCH (21:00)
[2016-07-05] MEDS: PRAVASTATIN SOD 40 MG TAB PO SCH (21:13)
[2016-07-06] VITALS (17 sets, daily range): BP systolic 110–143; BP diastolic 64–85; PULSE 72–91; RESP 18–24; TEMP 97.6–98.6; O2SAT 92–95
[2016-07-06 06:25] LABS: APTT (PATIENT) 28.7 SEC (24.3-30.1)
[2016-07-06] MEDS: INSULIN ASPART SUPPLEMENTAL SCALE SQ SCH ×2 (07:00→11:59)
[2016-07-06] MEDS: METOCLOPRAMIDE HCL 10 MG/2 ML VIAL IV PUSH SCH ×2 (07:31→12:00)
[2016-07-06] MEDS: PANTOPRAZOLE SOD 40 MG DELAYED RELEASE TAB PO SCH (08:51)
[2016-07-06] MEDS: SODIUM CHLORIDE 0.9% FLUSH 10 ML FLUSH IV FLUSH SCH (08:52)
[2016-07-06] MEDS: MULTIVITAMINS/MINERALS THERAPEUTIC TAB PO SCH (08:52)
[2016-07-06] MEDS: AMIODARONE 200 MG TAB PO SCH (08:52)
[2016-07-06] MEDS: DOCUSATE SODIUM 100 MG CAP PO SCH (08:52)
[2016-07-06] MEDS: ASPIRIN EC 81 MG TABEC PO SCH (08:52)
[2016-07-06] MEDS: METOPROLOL TARTRATE 25 MG TAB PO SCH (08:52)
[2016-07-06] MEDS: POTASSIUM CHLORIDE 20 MEQ CONTROLLED RELEASE TAB PO SCH (08:54)
[2016-07-06] MEDS: POLYETHYLENE GLYCOL 17 GM PKG PO SCH (08:55)
[2016-07-06] MEDS: MAGNESIUM HYDROXIDE SUSP 30 ML CUP PO SCH (08:55)
--- NOTE | 2016-07-06 10:13 | RSPPFT ---
DATE OF PROCEDURE: 06/29/16 COMMENTS: Spirometry with normal flow rates and ratios. No suggestion of airways obstruction or restriction. IMPRESSION: 1. Essentially normal spirometry.
[2016-07-06] MEDS ORDERED: AMIO200T PO (12:55)
[2016-07-06] MEDS ORDERED: THERM PO (12:55)
[2016-07-06] MEDS ORDERED: FURO1TAB60 PO (12:55)
[2016-07-06] MEDS ORDERED: METO25TA3 PO (12:55)
[2016-07-06] MEDS ORDERED: OXYC1TAB63 PO (12:55)
[2016-07-06] MEDS ORDERED: DOCU1CAP39 PO (12:55)
[2016-07-06] MEDS ORDERED: ASPI81TA11 PO (12:55)
[2016-07-06] MEDS ORDERED: PANT40TA3 PO (12:55)
--- NOTE | 2016-07-06 13:00 | HHI.DS ---
Discharge Summary Admission Date Jun 25, 2016 at 02:44 Discharge Date: July 06, 2016 Admitting Diagnosis respiratory distress, pulmonary edema, non-STEMI (1) Respiratory distress Diagnosis: Principal (2) CAD (coronary artery disease) Diagnosis: Principal (3) Hyperlipidemia Diagnosis: Secondary (4) Hypertension (5) Congestive heart failure (CHF) Diagnosis: Principal (6) Non-STEMI (non-ST elevated myocardial infarction) Diagnosis: Principal (7) Pulmonary edema Diagnosis: Principal Procedures CABG [facility] ECHO Brief History Subjective/Hospital Course: 80/ male from [place] here with his as alexander, admitted with NSTEMI , acute CHF / pulm edema / right lower lobe Pneumonia underwent cardiac cath by Dr Wolff, multivessel disease EF 40%. Pt initially admitted to [facility], diuresed and started on antibiotics. Pt is now scheduled for surgery on 06/30 PMH: HTN, HLP CBC/BMP: 07/04/16 0500 07/03/16 0545 Significant Findings Laboratory Tests Test 07/04/16 07/05/16 05:00 04:52 White Blood Count 12.6 TH/MM3 (4.0-11.0) Red Blood Count 3.18 MIL/MM3 (4.50-5.90) Hemoglobin 10.1 GM/DL (13.0-17.0) Hematocrit 29.5 % (39.0-51.0) Activated Partial 31.3 SEC 30.6 SEC Thromboplast Time (24.3-30.1) (24.3-30.1) Imaging Last Impressions Chest X-Ray 07/02/16 0500 Signed Impressions: Service Date/Time: June 03:24 - CONCLUSION: 1. Left basilar atelectasis. There has been no significant change when compared to the prior exam. 2. There is no evidence of pneumothorax. Dorian Marie MD Lower Extremity Ultrasound 06/26/16 0000 Signed Impressions: Service Date/Time: Sunday, June 26, 2016 18:26 - CONCLUSION: Venous mapping as delineated above. Danny Gonzalez MD Chest CT 06/26/16 0000 Signed Impressions: Service Date/Time: Monday, June 27, 2016 10:12 - CONCLUSION: Patchy right lung airspace disease, small bilateral effusions. Atherosclerosis. Mateo Moseley MD Carotid Artery Ultrasound 06/26/16 0000 Signed Impressions: Service Date/Time: Sunday, June 26, 2016 15:44 - CONCLUSION: 1. No evidence of hemodynamically significant lesion. Dorian Marie MD PE at Discharge Chest - CTA COR - RRR ABD - soft, NT wound - dry and intact Hospital Course 06/29 pt for OR in am no chest pain, or SOB 06/30 OR cancelled and rescheduled for surgery in am / 04/02 scheduling no pain 07/01 Procedure: CABG x 4 ALLEN to LAD - good SVG to OM2 - fair SVG to OM3 - good SVG to PDA - good 07/02 Doing well Transfer telemetry Maintain CT 07/[address] drainage. Maintain to suction Ambulate 07/04 CT continues to drain Re-evaluate for removal tomorrow 07/05 D/C CT Discharge planning Pt Condition on Discharge: Good Discharge Disposition: Disch w/ Home Health Serv Discharge Instructions DIET: Follow Instructions for: Heart Healthy Diet Activities you can perform: Weight Bearing as Timothy, Shower Only-No Bath Activities to avoid: Lifting/Bending, Driving Follow up Referrals: Cardiology @ [facility] with Ludwin Wolff MD PCP Follow-up with Calderon Rios MD Surgical with Maye Medley MD New Orders: X-RAY CHEST PA & LAT - 2 Weeks New Medications: Furosemide (Lasix) 40 Mg Tab 40 MG PO BID Blood Pressure Management #14 Ref 0 TAB Amiodarone (Amiodarone) 200 Mg Tab 200 MG PO Q12HR Regulate Heart Beat #28 Ref [address] (Aspirin EC) 81 Mg Tabdr 81 MG PO DAILY Blood Clot Prevention #90 Ref 4 TAB Docusate Sodium (Dok) 100 Mg Cap 100 MG PO BID Constipation #28 Ref 0 CAP Metoprolol Tartrate (Metoprolol Tartrate) 25 Mg Tab 25 MG PO BID Blood Pressure Management #60 Ref 3 TAB Multiple Vitamins W/ Minerals (Thera M Plus) 1 Tab 1 TAB PO DAILY Nutritional Supplement #100 Ref 1 TAB Oxycodone-Acetaminophen (Oxycodone-Acetaminophen) 5-325 mg Tab 1 TAB PO Q3H PRN PAIN SCALE 1 TO 5 #30 Ref 0 TAB Pantoprazole (Pantoprazole) 40 Mg Tab 40 MG PO DAILY Prevent Stress Ulcers #14 Ref 0 TAB Continued Medications: Lisinopril (Lisinopril) 2.5 Mg Tab 12.5 MG PO DAILY #30 Ref 0 TAB Simvastatin (Simvastatin) 40 Mg Tab 40 MG PO HS Cholesterol Management #30 Ref 0 TAB Discontinued Medications: Amlodipine (Amlodipine) 5 Mg Tab 5 MG PO DAILY Blood Pressure Management #30 Ref 0 TAB Maye Medley MD July 06, 2016 12:59
--- NOTE | 2016-07-06 13:01 | HHI.FF ---
Face to Face Verification Diagnosis: (1) Non-STEMI (non-ST elevated myocardial infarction) (2) CAD (coronary artery disease) (3) Congestive heart failure (CHF) Physical Therapy Order: Evaluate and Treat, Improve ambulation Occupational Therapy Order: Evaluate and Treat Home Health Nursing Order: Medical education Signs/symptoms of disease process CHF education Nursing assessment with vital signs [place] Order: To Evaluate: Living conditions/environment, Support services I have seen patient Jw Jackman on 07/06/16. My clinical findings support the need for the requested home health care services because: Patient has SOB Deconditioned w/ increased weakness High risk of falls I certify that my clinical findings support that this patient is homebound because: Post-op weakness Maye Medley MD July 06, 2016 13:01
[2016-07-06] MEDS ORDERED: FUROSEMIDE 40 MG/4 ML VIAL IV PUSH SCH (18:00)
== END 2016-07-06 14:37 | disposition home health service (06) | DRG 233 ==
LOC: NEPE 01:14 → NEDA 02:44 → HIMW 03:20 → HCIS 06-26 20:43 → HCIN 06-29 17:45 → HCIS 07-01 08:11 → HCVR 07-01 11:40 → HCIN 07-02 11:07
PROVIDERS: ADMIT Thoracic Surgery (Cardiothoracic Vascular Surgery); ATTEND Thoracic Surgery (Cardiothoracic Vascular Surgery)
PROC: 4A023N7 Measurement of Cardiac Sampling and Pressure, Left Heart, Percutaneous Approach (ICD-10-PCS; 2016-06-25)
PROC: B2111ZZ Fluoroscopy of Multiple Coronary Arteries using Low Osmolar Contrast (ICD-10-PCS; 2016-06-25)
PROC: B2151ZZ Fluoroscopy of Left Heart using Low Osmolar Contrast (ICD-10-PCS; 2016-06-25)
PROC: 5A09357 Assistance with Respiratory Ventilation, Less than 24 Consecutive Hours, Continuous Positive Airway Pressure (ICD-10-PCS; 2016-06-25)
PROC: 021209W Bypass Coronary Artery, Three Arteries from Aorta with Autologous Venous Tissue, Open Approach (ICD-10-PCS; 2016-07-01)
PROC: B246ZZ4 Ultrasonography of Right and Left Heart, Transesophageal (ICD-10-PCS; 2016-07-01)
PROC: 5A1221Z Performance of Cardiac Output, Continuous (ICD-10-PCS; 2016-07-01)
PROC: 02100Z9 Bypass Coronary Artery, One Artery from Left Internal Mammary, Open Approach (ICD-10-PCS; principal; 2016-07-01 07:17)
DX: I50.21 Acute systolic (congestive) heart failure (principal); I21.4 Non-ST elevation (NSTEMI) myocardial infarction; J96.91 Respiratory failure, unspecified with hypoxia; J18.9 Pneumonia, unspecified organism; I25.110 Atherosclerotic heart disease of native coronary artery with unstable angina pectoris; E78.2 Mixed hyperlipidemia; I10 Essential (primary) hypertension; I34.0 Nonrheumatic mitral (valve) insufficiency; K59.00 Constipation, unspecified
CPT/HCPCS: 36430; 36600; 71010; 71250; 76937; 80048; 80053; 80061; 81001; 82272; 82550; 82552; 82805; 82948; 83036; 83605; 83735; 83880; 84484; 85002; 85014; 85025; 85027; 85610; 85730; 86850; 86900; 86901; 86920; 87040; 87641; 93005; 93306; 93318; 93458; 93880; 93970; 93998; 94002; 94010; 94150; 94640; 94664; 94667; 94668; 96365; C1760; C1769; C1893; G0269; J0131; J0456; J0690; J1250; J1265; J1644; J1815; J1940; J1956; J2150; J2250; J2370; J2440; J2543; J2710; J2720; J2765; J2930; J3010; J3370; J3475; J3480; J7030; J7040; J7050; J7120; P9016; P9047; Q9967